=== PATIENT | female | born 1995 | race Caucasian/White ===

== ENCOUNTER → 2018-03-12 | Outpatient (CLI) | payer BC | END | disposition home or self-care (01) | LOC: LABWHC1 15:55 | PROVIDERS: ATTEND Otolaryngology | DX: Z53.9 Procedure and treatment not carried out, unspecified reason (principal) | CPT/HCPCS: 36415 ==

== ENCOUNTER → 2019-09-21 | Outpatient (CLI) | payer OTHER ==
--- NOTE | 2019-09-21 15:03 | US ---
EXAMINATION TYPE: US pelvic complete DATE OF EXAM: 09/21/2019 COMPARISON: NONE CLINICAL HISTORY: R10.2 Pelvic pain. Left pelvic pain with period x multiple months, 0 TECHNIQUE: Transabdominal sonographic images of the pelvis were acquired. Date of LMP: 09/16/2019 EXAM MEASUREMENTS: Uterus: 7.0 x 3.0 x 5.1 cm Endometrial Stripe: 0.5 cm Right Ovary: 2.9 x 1.4 x 2.2 cm Left Ovary: 3.3 x 1.7 x 2.1 cm 1. Uterus: anteverted, wnl 2. Endometrium: wnl 3. Right Ovary: wnl 4. Left Ovary: wnl 5. Bilateral Adnexa: wnl 6. Posterior cul-de-sac: Scant amount of free fluid IMPRESSION: Scant amount of free fluid, likely physiologic in nature. Otherwise unremarkable pelvic u ltrasound.
== END | disposition home or self-care (01) ==
LOC: RADUSWWP 13:53
PROVIDERS: ATTEND Obstetrics & Gynecology
DX: R10.2 Pelvic and perineal pain (principal)
CPT/HCPCS: 76856

== ENCOUNTER → 2020-10-25 | Outpatient (CLI) | payer OTHER | END | disposition home or self-care (01) | LOC: LABWHC1 10:42 | PROVIDERS: ATTEND Obstetrics & Gynecology | DX: O20.0 Threatened abortion (principal) | CPT/HCPCS: 36415; 84702 ==

== ENCOUNTER → 2020-10-27 | Outpatient (CLI) | payer OTHER | END | disposition home or self-care (01) | LOC: LABWHC1 11:17 | PROVIDERS: ATTEND Obstetrics & Gynecology | DX: O20.0 Threatened abortion (principal) | CPT/HCPCS: 36415; 84702 ==

== ENCOUNTER → 2020-12-29 | Outpatient (CLI) | payer OTHER ==
--- NOTE | 2020-12-30 07:13 | US ---
EXAMINATION TYPE: Transabdominal DATE OF EXAM: 12/29/2020 4:29 PM COMPARISON: NONE CLINICAL HISTORY: Z36 CONFIRM DATES. Miscarriage October 2020; EXAM PERFORMED: Transabdominal (TA) EXAM MEASUREMENTS: GESTATIONAL AGE / DATING Physician Established: NA Dates by LMP: LMP unknown Dates by First Scan: No previous scan. Dates by Current Scan for: (8 weeks/1 day) EDC: 08/09/2021 MATERNAL ANATOMY Uterus: 9.9 x 6.0 x 5.4cm Right Ovary: not seen Left Ovary: 5.2 x 4.3 x 4.1cm Post CDS / Adnexa: wnl Presence of free fluid: no Presence of corpus luteal cyst: in left ovary = 3.6 x 3.8 x 3.4cm Presence of subchorionic bleed: no GESTATION / SURVEY CRL: 1.8cm (8 weeks/1 day) Yolk Sac (normal less than 6mm): 3.0mm Heart Rate: 178pm Rhythm: Normal IUP: single IUP Date of LMP: unknown Beta HcG (if available): NA Single, live IUP, 8 weeks/1 day,EDC: 08/09/2021, HR 178bpm. IMPRESSION: Single viable intrauterine noted.
== END | disposition home or self-care (01) ==
LOC: RADUSWWP 16:00
PROVIDERS: ATTEND Obstetrics & Gynecology
DX: Z36.9 Encounter for antenatal screening, unspecified (principal)
CPT/HCPCS: 76801

== ENCOUNTER → 2021-03-15 | Outpatient (CLI) | payer OTHER ==
--- NOTE | 2021-03-15 15:17 | US ---
EXAMINATION TYPE: US OB anatomy transabd DATE OF EXAM: 03/15/2021 COMPARISON: NONE HISTORY: O36.62X0 @nd trimest, large for dates TECHNIQUE: EXAM MEASUREMENTS: GESTATIONAL AGE / DATING Physician Established: (19 weeks/0 days) EDC: 08-09-21 Dates by First Scan: (19 weeks/0 days) EDC: 08-09-21 Dates by Current Scan for: (19 weeks/3 days) EDC: 08-06-21 SURVEY IUP: Single PLACENTA: Anterior PREVIA: No previa MALIK: 14.1 cm CERVICAL LENGTH (transabdominal: norm > 3.0cm): 4.4 cm BIOMETRY PRESENTATION: LIE: BPD: 4.6 cm 19 weeks / 6 days HC: 16.7 cm 19 weeks / 3 days AC: 15.1 cm 20 weeks / 2 days FL: 2.9 cm 19 weeks / 1 days ESTIMATED WEIGHT IN GRAMS: 311 grams ESTIMATED WEIGHT IN LBS/OZ: 0 lbs. 11 oz. WEIGHT PERCENTAGE BASED ON ESTABLISHED DATE: 87 % HC/AC: 1.1 FL/AC: 19.7 HEART RATE: 157 bpm RHYTHM: Normal ANATOMY SEEN (within normal limits): * Lateral Vent (< 1 cm) 0.6 cm * Cisterna Magna (< 1.1 cm) 0.4 cm * Nuchal Fold (< 0.6 cm) 0.3 cm * Cerebellum (varies with age) 1.6 cm Choroid Plexus (bilateral) Midline Falx Cavus Septi Pellucidi Four Chamber Heart Outflow tracts: LVOT/RVOT Stomach Situs Nose / Lips Diaphragm Kidneys (bilateral) Bladder Cord Insert Three Vessel Cord Longitudinal Spine Transverse Spine Arms (bilateral) Legs (bilateral) Impression: Single viable intrauterine .
== END | disposition home or self-care (01) ==
LOC: RADUSWWP 13:38
PROVIDERS: ATTEND Obstetrics & Gynecology
DX: O36.62X0 Maternal care for excessive fetal growth, second trimester, not applicable or unspecified (principal)
CPT/HCPCS: 76811

== ENCOUNTER → 2021-04-19 | Outpatient (CLI) | payer OTHER ==
[2021-04-19 15:14] LABS: HCT 32.9 % (37.2-46.3); HGB 10.7 g/dL (12.0-15.0); MCHC 32.5 g/dL (32.0-37.0); MCV 95.4 fL (80.0-97.0); Mean Platelet Volume 10.3 fL (9.5-12.2); Platelet Count 261 X 10*3/uL (140-440); RBC 3.45 X 10*6/uL (4.10-5.20); RDW 13.5 % (11.5-14.5); WBC 8.65 X 10*3/uL (4.50-10.00)
== END | disposition home or self-care (01) ==
LOC: LABWHC1 07:53
PROVIDERS: ATTEND Obstetrics & Gynecology
DX: Z34.82 Encounter for supervision of other normal pregnancy, second trimester (principal); Z3A.00 Weeks of gestation of pregnancy not specified
CPT/HCPCS: 36415; 82950; 85027

== ENCOUNTER 2021-04-22 14:48 | Emergency (ER) | payer OTHER ==
[2021-04-22 14:53] VITALS: TEMP 98.4
[2021-04-22] MEDS ORDERED: SODIUM CHLORIDE 0.9% 1,000 ML IV STA (15:03)
[2021-04-22 15:10] LABS: Glucose,Whole Blood 109 mg/dL (75-99)
--- NOTE | 2021-04-22 15:43 | ED ---
Chest Pain HPI - General Chief Complaint: Chest Pain Stated Complaint: chest pain, 24wks preg Time Seen by Provider: 04/22/21 14:56 Source: patient Mode of arrival: wheelchair Limitations: no limitations - History of Present Illness Initial Comments: Jackie is a 25-year-old female previously healthy currently 24 weeks gestation with an uncomplicated . Patient works as a nurse here in the hospital. Patient reports she's had some acid reflux at the . She states that today she was working when she developed some burning and discomfort in her epigastrium and retrosternal area. When this developed patient felt like she couldn't breathe she then felt very short of breath. Her coworkers noted that she became sweaty and advised her to come to the ER for evaluation. Symptoms were persisting upon arrival and had been persistent for only 15 minutes. - Related Data Allergies Allergy/AdvReac Type Severity Reaction Status Date / Time No Known Allergies Allergy Verified 04/22/21 14:51 Review of Systems ROS Statement: Those systems with pertinent positive or pertinent negative responses have been documented in the HPI. ROS Other: All systems not noted in ROS Statement are negative. EKG Findings - EKG Comments: EKG Findings:: EKG was obtained 1458 rate is 9200 with sinus there is a normal axis there are normal intervals, MA 92 QRS 90 QTc is 460 there are no acute ST elevations or depressions there is no evidence of acute ischemia or infarction. Past Medical History Past Medical History: No Reported History History of Any Multi-Drug Resistant Organisms: None Reported Past Surgical History: No Surgical Hx Reported Past Psychological History: No Psychological Hx Reported Smoking Status: Never smoker Past Alcohol Use History: None Reported Past Drug Use History: None Reported General Exam - General Exam Comments Initial Comments: Physical Exam GENERAL: Patient is well-developed and well-nourished. Patient is nontoxic and well- hydrated and is in no distress. HENT: Normocephalic, Atraumatic. EYES: PERRL, EOMI PULMONARY: Unlabored respirations. No audible rales rhonchi or wheezing was noted. CARDIOVASCULAR: There is a regular rate and rhythm without any murmurs gallops or rubs. ABDOMEN: Gravid Uterus SKIN: Skin is clear with no lesions or rashes and otherwise unremarkable. : Deferred NEUROLOGIC: Patient is alert and oriented x3. Moving all extremities spontaneously MUSCULOSKELETAL: Normal extremities with adequate strength and full range of motion. No lower extremity swelling or edema. No calf tenderness. PSYCHIATRIC: Normal psychiatric evaluation. Limitations: no limitations Course Vital Signs 04/22/21 04/22/21 14:49 16:30 Temperature 98.4 F Pulse Rate 101 H 94 Respiratory 24 18 Rate Blood Pressure 106/60 118/45 O2 Sat by Pulse 100 98 Oximetry Chest Pain MDM - MDM The patient was seen and evaluated history was obtained from patient Despite having oxygen saturations of 9200% patient reported she could not breathe Patient was placed on supplemental oxygen Workup was initiated Labs with mild leukocytosis and anemia consistent with normal , d-dimer is not elevated troponin is not elevated DVT studies are negative and chest x-ray is normal Patient reports resolution of her symptoms she is feeling much better she was comfortable with the plan for discharge home She care was discussed with Dr. Frey who recommends patient go to labor and delivery for an NST, patient discharged from ER to go to L&D Disposition Clinical Impression: Atypical chest pain Disposition: HOME SELF-CARE Condition: Stable Is patient prescribed a controlled substance at d/c from ED?: No Referrals: Clayton Fernando MD [Primary Care Provider] - 1-2 days
[2021-04-22 15:50] LABS: Basophils % (A) 0 %; Eosinophils # (A) 0.1 k/uL (0-0.7); Eosinophils % (A) 1 %; HGB 11.3 gm/dL (11.4-16.0); Lymphocytes # (A) 1.6 k/uL (1.0-4.8); Lymphocytes % (A) 15 %; MCH 33.2 pg (25.0-35.0); MCHC 36.6 g/dL (31.0-37.0); MCV 90.6 fL (80.0-100.0); Mean Platelet Volume 7.4; Monocytes # (A) 0.5 k/uL (0-1.0); Monocytes % (A) 5 %; Neutrophils # (A) 8.2 k/uL (1.3-7.7); Neutrophils % (A) 77 %; Platelet Count 251 k/uL (150-450); RBC 3.42 m/uL (3.80-5.40); WBC 10.7 k/uL (3.8-10.6)
[2021-04-22 15:59] LABS: ALT 10 U/L (4-34); AST 23 U/L (14-36); African American GFR (CKD) >90 (>60 ml/min/1.73 sqM); Albumin 3.4 g/dL (3.5-5.0); Alkaline Phosphatase 66 U/L (38-126); Anion Gap 6 mmol/L; Blood Urea Nitrogen 8 mg/dL (7-17); Calcium 8.9 mg/dL (8.4-10.2); Carbon Dioxide 24 mmol/L (22-30); Chloride 105 mmol/L (98-107); Glucose 123 mg/dL (74-99); Lipase 84 U/L (23-300); Magnesium 1.8 mg/dL (1.6-2.3); Non-African American GFR(CKD) >90 (>60 ml/min/1.73 sqM); Potassium 3.4 mmol/L (3.5-5.1); Sodium 135 mmol/L (137-145); Total Bilirubin 0.2 mg/dL (0.2-1.3); Total Protein 5.8 g/dL (6.3-8.2)
[2021-04-22 16:13] LABS: D-Dimer 0.56 mg/L FEU (<0.60); INR 0.9 (<1.2); Prothrombin Time 9.6 sec (9.0-12.0)
[2021-04-22 16:16] LABS: Partial Thromboplastin Time 19.9 sec (22.0-30.0)
[2021-04-22 16:33] VITALS: RESP 18
--- NOTE | 2021-04-22 16:34 | US ---
EXAMINATION TYPE: US venous doppler duplex LE BI DATE OF EXAM: 04/22/2021 4:07 PM COMPARISON: NONE CLINICAL HISTORY: suspect PE. SIDE PERFORMED: Bilateral TECHNIQUE: The lower extremity deep venous system is examined utilizing real time linear array sonog kim with graded compression, doppler sonography and color-flow sonography. VESSELS IMAGED: Common Femoral Vein Deep Femoral Vein Greater Saphenous Vein * Femoral Vein Popliteal Vein Small Saphenous Vein * Proximal Calf Veins (* superficial vessels) Right Leg: Negative for DVT Left Leg: Negative for DVT IMPRESSION: No evidence of deep vein thrombosis in both legs.
--- NOTE | 2021-04-22 17:10 | XR ---
EXAMINATION TYPE: XR chest 2V DATE OF EXAM: 04/22/2021 COMPARISON: NONE HISTORY: Short of breath TECHNIQUE: 2 views FINDINGS: Heart and mediastinum are normal. Lungs are clear. Diaphragm is normal. Bony thorax is inta ct. Pulmonary vascularity is normal. IMPRESSION: Normal chest.
[2021-04-22 18:11] VITALS: BP 135/85; PULSE 86
== END 2021-04-22 18:15 | disposition home or self-care (01) ==
LOC: EC 14:48
DX: O26.892 Other specified pregnancy related conditions, second trimester (principal); R07.89 Other chest pain; Z3A.24 24 weeks gestation of pregnancy
CPT/HCPCS: 36415; 71046; 80053; 83690; 83735; 83880; 84484; 85025; 85379; 85610; 85730; 93005; 93970; 99285

== ENCOUNTER → 2021-04-28 | Outpatient (CLI) | payer OTHER ==
[2021-04-28 12:07] LABS: Glucose 3 Hour, Gest 57 mg/dL
== END | disposition home or self-care (01) ==
LOC: LABWHC1 07:09
PROVIDERS: ATTEND Obstetrics & Gynecology
DX: O24.419 Gestational diabetes mellitus in pregnancy, unspecified control (principal); Z3A.00 Weeks of gestation of pregnancy not specified
CPT/HCPCS: 36415; 82951; 82952

== ENCOUNTER 2021-04-30 00:40 | Outpatient (CLI) | payer OTHER ==
[2021-04-30] MEDS ORDERED: MAG HYDROX/AL HYDROX/SIMETH 30 ML CUP PO PRN (00:54)
[2021-04-30 02:47] VITALS: BP 120/58; PULSE 83; RESP 16; TEMP 96.4
--- NOTE | 2021-06-02 21:30 | P.MSEPDOC ---
Presenting Problems - Arrival Data Date of Arrival on Unit: 04/30/21 Time of Arrival on Unit: 00:40 Mode of Transport: Ambulatory - Complaint OB-Reason for Admission/Chief Complaint: Pain Comment: patient arrives to triage with complaints of right upper quadrant pain that. radiates towards her back. The pain is sharp. She states that she was in the ER on 04/26 for the same pain. Medical History - Information : 2 Para: 0 Term: 0 : 0 Abortions: Spontaneous or Elective: 1 Number of Living Children: 0 - Gestational Age Gestational Age by ADITYA (wks/days): 25 Weeks and 4 Days Review of Systems - Review of Systems Constitutional: No problems Breast: No problems ENT: No problems Cardiovascular: No problems Respiratory: No problems Gastrointestinal: No problems Genitourinary: No problems Musculoskeletal: No problems Neurological: No problems Skin: No problems Vital Signs - Temperature Temperature: 96.4 F Temperature Source: Temporal Artery Scan - Pulse Right Brachial Pulse Rate: 83 Pulse Assessment Method: Automatic Cuff - Respirations Respiratory Rate: 16 Oxygen Delivery Method: Room Air - Blood Pressure Right Arm Blood Pressure: 120/58 Blood Pressure Mean: 78 Blood Pressure Source: Automatic Cuff Medical Screen Scoring - Cervical Exam Membranes: Intact - Assessment - Baby A Baseline FHR: 140 Heart Rate - NICHD Category: Category I (Normal) Physician Notification - Physician Notified Physician Notified Date: 04/30/21 Physician Notified Time: 00:51 Physician: Loretta Mcpherson New Order Received: Yes - Notification Comment Comment: RN spoke with Dr. Mcpherson. heart tones between 130-140. No contractions. noted on monitor. RN reported normal vital signs, right upper quadrant pain that radiates to her back for one hour. Patient came to ER on 04/26/21 for same symptoms. ER ruled out a PE at that time. Patient believes it to be her gall bladder because symptoms start after eating food. Dr. Mcpherson would like patient to have a dose of Maalox and be discharged. Patient isto be seen by Dr. Mcpherson this week and Dr. Mcpherson states she will write her a. prescription for a gall bladder US as an outpatient so patient does not have to sit in the ER. Patient updated on plan of care. Maternal Triage Index - Non-Urgent/Priority 4 Non-Urgent Priority 4: Yes Criteria Met for Priority 4: Patient is having pain in her upper right quadrant radiating to her back. Disposition - Disposition OB Disposition: Discharge to home Discharge Date: 04/30/21 Discharge Time: 01:30 I agree with the RN Medical Screening Exam: Yes Case reviewed; plan agreed upon as documented in EMR&OBIX.: Yes Diagnosis: OTHER CHOLELITHIASIS WITHOUT OBSTRUCTION
== END 2021-04-30 01:30 | disposition home or self-care (01) ==
LOC: FBPOP 00:40
PROVIDERS: ATTEND Obstetrics & Gynecology
DX: O26.612 Liver and biliary tract disorders in pregnancy, second trimester (principal); K80.80 Other cholelithiasis without obstruction; Z3A.25 25 weeks gestation of pregnancy
CPT/HCPCS: 99213

== ENCOUNTER → 2021-05-15 | Outpatient (CLI) | payer OTHER ==
--- NOTE | 2021-05-15 16:10 | US ---
EXAMINATION TYPE: US gallbladder DATE OF EXAM: 05/15/2021 COMPARISON: 03/15/2021 CLINICAL HISTORY: R10.11 Rt upper quadrant pain. patient with right upper quadrant pain. EXAM MEASUREMENTS: Liver Length: 13.3 cm Gallbladder Wall: 0.2 cm CBD: 0.2 cm Right Kidney: 11.3 x 5.3 x 5.7 cm patient with RUQ pain Pancreas: portions visualized wnl, slightly obscured by bowel gas Liver: wnl Gallbladder: cholelithiasis with sludge Evidence for sonographic Bautista's sign: no CBD: wnl Right Kidney: Inferior pole obscured by overlying bowel gas IMPRESSION: 1. Cholelithiasis and sludge. No pericholecystic fluid or gallbladder wall thickening. Bautista's sign is negative. 2. No hydronephrosis or shadowing renal calculi. 3. The inferior pole of the right kidney is not well visualized due to overlying bowel gas.
== END | disposition home or self-care (01) ==
LOC: RADUSWWP 07:33
PROVIDERS: ATTEND Obstetrics & Gynecology
DX: K80.20 Calculus of gallbladder without cholecystitis without obstruction (principal)
CPT/HCPCS: 76705

== ENCOUNTER → 2021-07-05 | Outpatient (CLI) | payer OTHER ==
--- NOTE | 2021-07-05 09:50 | US ---
EXAMINATION TYPE: US OB anatomy transabd DATE OF EXAM: 07/05/2021 COMPARISON: US HISTORY: O36.63X0 3rd Trimester large for dates All anatomy was seen on prior US here; TECHNIQUE: Transabdominal (TA) EXAM MEASUREMENTS: GESTATIONAL AGE / DATING Physician Established: (35 weeks/0 days) EDC: 08/09/2021 Dates by LMP: (35 weeks/0 days) EDC: 08/09/2021 Dates by First Scan: (35 weeks/3 days) EDC: 08/06/2021 Dates by Current Scan for: (34 weeks/5 days) EDC: 08/11/2021 SURVEY IUP: Single PLACENTA: Anterior PREVIA: No previa MALIK: 11.8 cm Normal CERVICAL LENGTH (transabdominal: norm > 3.0cm): 3.7 cm BIOMETRY PRESENTATION: cephalic LIE: Longitudinal BPD: 8.6 cm 34 weeks / 4 days HC: 30.9 cm 34 weeks / 3 days AC: 32.3 cm 36 weeks / 2 days FL: 6.8 cm 35 weeks / 0 days ESTIMATED WEIGHT IN GRAMS: 2705.0 grams ESTIMATED WEIGHT IN LBS/OZ: 5 lbs. 15 oz. WEIGHT PERCENTAGE BASED ON ESTABLISHED DATE: 63.1 % HC/AC: 0.96 Normal FL/AC: 21.08 Normal HEART RATE: 127 bpm RHYTHM: Normal ANATOMY SEEN (within normal limits): Midline Falx Cavus Septi Pellucidi Stomach Situs Nose / Lips Diaphragm Kidneys (bilateral) Bladder Three Vessel Cord Longitudinal Spine Transverse Spine ANATOMY SEEN (does not appear within normal limits): ANATOMY NOT SEEN: Due to position, limited visualization with skull shadowing, rib shadowing, crowding in 3rd trimester. * Lateral Vent (< 1 cm) cm * Cisterna Magna (< 1.1 cm) cm * Nuchal Fold (< 0.6 cm) cm * Cerebellum (varies with age) cm Choroid Plexus (bilateral) Four Chamber Heart Outflow tracts: LVOT/RVOT Cord Insert Arms (bilateral) Legs (bilateral) IMPRESSION: Single, live IUP, 34 weeks/5 days, EDC: 08/11/2021, [id number].
== END | disposition home or self-care (01) ==
LOC: RADUSWWP 07:56
PROVIDERS: ATTEND Obstetrics & Gynecology
DX: O36.63X0 Maternal care for excessive fetal growth, third trimester, not applicable or unspecified (principal); Z3A.35 35 weeks gestation of pregnancy
CPT/HCPCS: 76811

== ENCOUNTER 2021-07-30 14:11 | Outpatient (CLI) | payer OTHER ==
[2021-07-30 16:06] VITALS: BP 130/75; PULSE 120; RESP 18; TEMP 97.6
--- NOTE | 2021-07-31 09:26 | P.MSEPDOC ---
Presenting Problems - Arrival Data Date of Arrival on Unit: 07/30/21 Time of Arrival on Unit: 14:11 Mode of Transport: Ambulatory - Complaint OB-Reason for Admission/Chief Complaint: Rule Out SROM, Decreased Movement Medical History - Information : 2 Para: 0 Term: 0 : 0 Abortions: Spontaneous or Elective: 1 Number of Living Children: 0 - Gestational Age Gestational Age by ADITYA (wks/days): 38 Weeks and 4 Days Review of Systems - Review of Systems Constitutional: No problems Breast: No problems ENT: No problems Cardiovascular: No problems Respiratory: No problems Gastrointestinal: No problems Genitourinary: No problems Musculoskeletal: No problems Neurological: No problems Skin: No problems Vital Signs - Temperature Temperature: 97.6 F Temperature Source: Temporal Artery Scan - Pulse Right Pulse Rate: 120 Pulse Assessment Method: Automatic Cuff - Respirations Respiratory Rate: 18 Oxygen Delivery Method: Room Air O2 Sat by Pulse Oximetry: 97 - Blood Pressure Right Arm Blood Pressure: 130/75 Blood Pressure Mean: 93 Blood Pressure Source: Automatic Cuff Medical Screen Scoring - Cervical Exam Dilation (cm): 1 Effacement (%): 50 Station: -2 Membranes: Intact - Uterine Contractions Intensity: Mild Resting: Soft to palpation - Assessment - Baby A Baseline FHR: 145 Heart Rate - NICHD Category: Category I (Normal) NST: Reactive Physician Notification - Physician Notified Physician Notified Date: 07/30/21 Physician Notified Time: 15:15 Physician: Vishal Frey Order Received: Yes (discharge home to call office about F/U) Maternal Triage Index - Maternal Triage Index Presenting for scheduled procedure w/no complaint: No - Stat/Priority 1 Stat Priority 1: No - Urgent/Priority 2 Urgent Priority 2: No - Prompt/Priority 3 Prompt Priority 3: No - Non-Urgent/Priority 4 Non-Urgent Priority 4: Yes Criteria Met for Priority 4: Amnisure negative, reactive NST Disposition - Disposition OB Disposition: Discharge to home Discharge Date: 07/30/21 Discharge Time: 15:25 I agree with the RN Medical Screening Exam: Yes Case reviewed; plan agreed upon as documented in EMR&OBIX.: Yes Diagnosis: FALSE LABOR AT OR AFTER 37 COMPLETED WEEKS OF GESTATION
== END 2021-07-30 15:20 | disposition home or self-care (01) ==
LOC: FBPOP 14:11
PROVIDERS: ATTEND Obstetrics & Gynecology
DX: O47.1 False labor at or after 37 completed weeks of gestation (principal); Z3A.38 38 weeks gestation of pregnancy
CPT/HCPCS: 59025; 84112; 87635; 99213

== ENCOUNTER 2021-08-04 16:16 | Outpatient (CLI) | payer OTHER ==
[2021-08-04 17:29] VITALS: BP 117/72; PULSE 108; RESP 16; TEMP 98.4
--- NOTE | 2021-08-06 17:31 | P.MSEPDOC ---
Presenting Problems - Arrival Data Date of Arrival on Unit: 08/04/21 Time of Arrival on Unit: 16:10 Mode of Transport: Ambulatory - Complaint OB-Reason for Admission/Chief Complaint: Other Comment: positive covid. 39 weeks preg. seen by ob- dr goodson in er observation room as office visit. Medical History - Information : 2 Para: 0 Term: 0 : 0 Abortions: Spontaneous or Elective: 1 Number of Living Children: 0 - Gestational Age Gestational Age by ADITYA (wks/days): 39 Weeks and 2 Days Review of Systems - Review of Systems Constitutional: No problems Breast: No problems ENT: No problems Cardiovascular: No problems Respiratory: No problems Gastrointestinal: No problems Genitourinary: No problems Musculoskeletal: No problems Neurological: No problems Skin: No problems Vital Signs - Temperature Temperature: 98.4 F Temperature Source: Oral - Pulse Right Radial Pulse Rate: 108 Pulse Assessment Method: Automatic Cuff - Respirations Respiratory Rate: 16 Oxygen Delivery Method: Room Air O2 Sat by Pulse Oximetry: 98 - Blood Pressure Right Arm Blood Pressure: 117/72 Blood Pressure Mean: 87 Blood Pressure Source: Automatic Cuff Medical Screen Scoring - Cervical Exam Dilation (cm): 0.5 Membranes: Intact - Uterine Contractions Intensity: Mild Resting: Soft to palpation - Assessment - Baby A Baseline FHR: 140 Maternal Triage Index - Maternal Triage Index Presenting for scheduled procedure w/no complaint: Yes - Scheduled/Requesting Priority 5 Scheduled/Requesting Priority 5: Yes Criteria Met for Priority 5: seen in er observation with dr goodson . Disposition - Disposition OB Disposition: Discharge to home Discharge Date: 08/04/21 Discharge Time: 16:50 I agree with the RN Medical Screening Exam: Yes Case reviewed; plan agreed upon as documented in EMR&OBIX.: Yes Comments: fundal height appropriate. FT/60/-3. 140 heart tones. will re-evaluate next week for possible induction if she does not deliver before 41 weeks. Diagnosis: COVID-19
== END 2021-08-04 16:50 | disposition home or self-care (01) ==
LOC: FBPOP 16:16
PROVIDERS: ATTEND Obstetrics & Gynecology
DX: Z53.9 Procedure and treatment not carried out, unspecified reason (principal)

== ENCOUNTER 2021-08-14 15:45 | Inpatient (IN) | payer OTHER ==
[2021-08-14] MEDS ORDERED: DINOPROSTONE 10 MG INSERT.ER VAGINAL ONE (16:04)
[2021-08-14] MEDS ORDERED: ZOLPIDEM 5 MG TAB PO PRN (17:54)
[2021-08-14] MEDS: LACTATED RINGERS 1,000 ML IV SCH (23:00)
[2021-08-14] MEDS ORDERED: METHYLERGONOVINE 0.2 MG/ML 1 ML AMP IM PRN (23:08)
[2021-08-14] MEDS ORDERED: LIDOCAINE 0.5% (PF) 5 MG/ML (50 ML SDV) SQ PRN (23:08)
[2021-08-14] MEDS ORDERED: CARBOPROST TROMETHAMINE 250 MCG/ML 1 ML AMP IM PRN (23:08)
[2021-08-14] MEDS ORDERED: TERBUTALINE 1 MG/ML VIAL SQ PRN (23:08)
[2021-08-14] MEDS ORDERED: OXYTOCIN 10 UNIT/ML 1 ML VIAL IM PRN (23:08)
[2021-08-14] MEDS: BUTORPHANOL 1 MG/ML 1 ML VIAL IV PRN (23:15)
[2021-08-14] MEDS ORDERED: OXYTOCIN 30 UNITS/500 ML NS 30 UNIT in SALINE 1 500ML.BAG IV SCH (23:15)
[2021-08-15] LABS: Basophils % (A) 0 %; Eosinophils # (A) 0.1 k/uL (0-0.7); Eosinophils % (A) 1 %; HGB 14.6 gm/dL (11.4-16.0); Lymphocytes # (A) 1.4 k/uL (1.0-4.8); Lymphocytes % (A) 19 %; MCH 31.8 pg (25.0-35.0); MCHC 34.9 g/dL (31.0-37.0); MCV 91.2 fL (80.0-100.0); Mean Platelet Volume 8.4; Monocytes # (A) 0.4 k/uL (0-1.0); Monocytes % (A) 6 %; Neutrophils # (A) 5.4 k/uL (1.3-7.7); Neutrophils % (A) 72 %; Platelet Count 206 k/uL (150-450); RDW 12.2 % (11.5-15.5); WBC 7.5 k/uL (3.8-10.6)
[2021-08-15] MEDS: BUTORPHANOL 1 MG/ML 1 ML VIAL IV PRN ×2 (01:19→03:19)
[2021-08-15] MEDS: LACTATED RINGERS 1,000 ML IV SCH ×2 (03:09→04:56)
[2021-08-15] MEDS ORDERED: ROPIVACAINE 5MG/ML 20ML VIAL ONE (04:14)
[2021-08-15] MEDS ORDERED: SODIUM CHLORIDE 0.9% 100 ML BAG ONE (04:14)
[2021-08-15] MEDS ORDERED: fentaNYL (PF) 50 MCG/ML 5 ML AMP ONE (04:14)
--- NOTE | 2021-08-15 07:08 | P.HPOB ---
History of Present Illness H&P Date: 08/14/21 Chief Complaint: induction of labor 26 year old presents at 40 weeks 5 days for induction of labor. Her cervix is 1/60/-2 and she is not david. heart tones 140 with moderate variability and reactive. Review of Systems All systems: negative Constitutional: Denies chills, Denies fever Eyes: denies blurred vision, denies pain Ears, nose, mouth and throat: Denies headache, Denies sore throat Cardiovascular: Denies chest pain, Denies shortness of breath Respiratory: Denies cough Gastrointestinal: Denies abdominal pain, Denies diarrhea, Denies nausea, Denies vomiting Genitourinary: Denies dysuria, Denies hematuria Musculoskeletal: Denies myalgias Integumentary: Denies pruritus, Denies rash Neurological: Denies numbness, Denies weakness Psychiatric: Denies anxiety, Denies depression Endocrine: Denies fatigue, Denies weight change Past Medical History Past Medical History: No Reported History Additional Past Medical History / Comment(s): gall bladder problems during pregancy History of Any Multi-Drug Resistant Organisms: None Reported Past Surgical History: No Surgical Hx Reported Additional Past Surgical History / Comment(s): wisdom teeth removal Past Anesthesia/Blood Transfusion Reactions: No Reported Reaction Past Psychological History: No Psychological Hx Reported Smoking Status: Never smoker Past Alcohol Use History: None Reported Past Drug Use History: None Reported - Past Family History Father Family Medical History: Coronary Artery Disease (CAD) Additional Family Medical History / Comment(s): ID Medications and Allergies Home Medications Medication Instructions Recorded Confirmed Type Pnv No.95/Ferrous Fum/Folic AC 1 tab PO DAILY 04/30/21 08/14/21 History [ Multivitamin Tablet] Allergies Allergy/AdvReac Type Severity Reaction Status Date / Time No Known Allergies Allergy Verified 08/14/21 16:22 Exam Osteopathic Statement: *. No significant issues noted on an osteopathic structural exam other than those noted in the History and Physical/Consult. Vital Signs Temp Pulse Resp BP Pulse Ox 08/14/21 16:24 97.7 F 89 17 132/77 98 Intake and Output 08/14/21 08/15/21 08/15/21 22:59 06:59 14:59 Intake Total 1999 Balance 1999 Intake: IV 1999 Other: # Voids 3 2 # Bowel Movements 3 Weight 86.183 kg Heart: Regular rate and rhythm Lungs: Clear to auscultation bilaterally Abdomen: Soft, nontender Extremities: Negative Homans sign Results Result Diagrams: 08/14/21 23:00 Assessment and Plan (1) Encounter for induction of labor Current Visit: Yes Status: Acute Code(s): Z34.90 - ENCNTR FOR SUPRVSN OF NORMAL , UNSP, UNSP TRIMESTER SNOMED Code(s): 955023013 Plan: 1. induction of labor with cervidil tonight and then amniotomy and pitocin in the morning. 2. anticipate normal vaginal delivery
[2021-08-15] MEDS ORDERED: diphenhydrAMINE 50 MG CAP PO PRN (10:21)
[2021-08-15] MEDS ORDERED: LANOLIN CREAM 5 GM TUBE TOPICAL PRN (10:21)
[2021-08-15] MEDS ORDERED: BENZOCAINE/MENTHOL SPRAY 1 GM/SPRAY AEROSOL TOPICAL PRN (10:21)
[2021-08-15] MEDS ORDERED: ZOLPIDEM 5 MG TAB PO PRN (10:21)
[2021-08-15] MEDS ORDERED: SIMETHICONE 80 MG CHEWABLE PO PRN (10:21)
[2021-08-15] MEDS ORDERED: diphenhydrAMINE 25 MG CAP PO PRN (10:21)
[2021-08-15] MEDS ORDERED: diphenhydrAMINE 50 MG/ML 1 ML VIAL IVP PRN ×2 (10:21)
[2021-08-15] MEDS ORDERED: ACETAMINOPHEN TAB 325 MG TAB PO PRN (10:26)
[2021-08-15] MEDS: IBUPROFEN 600 MG TAB PO PRN ×3 (10:54→23:23)
--- NOTE | 2021-08-15 17:18 | P.PROBDLV ---
Vaginal Delivery Note - . Vaginal Delivery Note: 26 year old presents at 40 weeks 5 days for induction of labor. Her cervix is 1/60/-2 and she is not david. heart tones 140 with moderate variability and reactive. Cervidil was placed. She did start david since and thereafter. When she was 2 cm dilated around 4:00 in the morning she was given an epidural for pain management. Cervidil had fallen out at that time. Pitocin was started. Amniotomy performed at 7:03 AM and clear fluid noted. She was 5 cm dilated, 90% effaced, and -1 station. heart tones remained 135- 140 with moderate variability and reactive. Her cervix was completely dilated at 8:16 AM. She pushed, delivered a viable female over intact perineum under epidural anesthesia at 9:19 AM. Head delivered OA, anterior shoulder which was the left shoulder was delivered gentle downward guidance followed by posterior shoulder and rest of body. Nose and mouth bulb suctioned, cord clamped and cut, placed on mother's abdomen. Apgars 9, 9, weight 7 lbs. 15 oz. Placenta attempted to be delivered but the cord evulsed. The placenta was then manually removed and 9:23 AM and patient tolerated well. Vagina, cervix, and perineum were inspected. First-degree midline laceration was repaired with 3-0 Vicryl. Estimated blood loss 150 mL. Mother and baby in stable condition.
[2021-08-15] MEDS: SENNOSIDES-DOCUSATE SODIUM 1 EACH TAB PO SCH (21:37)
[2021-08-16] MEDS: IBUPROFEN 600 MG TAB PO PRN (07:40)
[2021-08-16 07:50] LABS: Basophils % (A) 0 %; Eosinophils # (A) 0.1 k/uL (0-0.7); Eosinophils % (A) 1 %; HCT 33.5 % (34.0-46.0); HGB 11.8 gm/dL (11.4-16.0); Lymphocytes # (A) 1.7 k/uL (1.0-4.8); Lymphocytes % (A) 16 %; MCHC 35.3 g/dL (31.0-37.0); MCV 90.7 fL (80.0-100.0); Mean Platelet Volume 8.1; Monocytes # (A) 0.6 k/uL (0-1.0); Monocytes % (A) 6 %; Neutrophils # (A) 7.7 k/uL (1.3-7.7); Neutrophils % (A) 73 %; Platelet Count 209 k/uL (150-450); RBC 3.69 m/uL (3.80-5.40); WBC 10.5 k/uL (3.8-10.6)
[2021-08-16 08:23] VITALS: BP 119/80; PULSE 88; RESP 16; TEMP 98.3
[2021-08-16] MEDS: SENNOSIDES-DOCUSATE SODIUM 1 EACH TAB PO SCH (08:45)
== END 2021-08-16 10:30 | disposition home or self-care (01) | DRG 807 ==
LOC: 4FBP 15:45
PROVIDERS: ADMIT Obstetrics & Gynecology; ATTEND Obstetrics & Gynecology
PROC: 3E0P7VZ Introduction of Hormone into Female Reproductive, Via Natural or Artificial Opening (ICD-10-PCS; principal; 2021-08-14)
PROC: 0HQ9XZZ Repair Perineum Skin, External Approach (ICD-10-PCS; 2021-08-15)
PROC: 00HU33Z Insertion of Infusion Device into Spinal Canal, Percutaneous Approach (ICD-10-PCS; 2021-08-15)
PROC: 3E033VJ Introduction of Other Hormone into Peripheral Vein, Percutaneous Approach (ICD-10-PCS; 2021-08-15)
PROC: 3E0R3NZ Introduction of Analgesics, Hypnotics, Sedatives into Spinal Canal, Percutaneous Approach (ICD-10-PCS; 2021-08-15)
PROC: 10E0XZZ Delivery of Products of Conception, External Approach (ICD-10-PCS; 2021-08-15)
PROC: 10907ZC Drainage of Amniotic Fluid, Therapeutic from Products of Conception, Via Natural or Artificial Opening (ICD-10-PCS; 2021-08-15)
DX: O70.0 First degree perineal laceration during delivery (principal); Z37.0 Single live birth; O69.89X0 Labor and delivery complicated by other cord complications, not applicable or unspecified; Z3A.40 40 weeks gestation of pregnancy; Z82.49 Family history of ischemic heart disease and other diseases of the circulatory system
CPT/HCPCS: 85025; 86850; 86900; 86901

== ENCOUNTER 2021-09-05 15:22 | Inpatient (IN) | payer OTHER ==
[2021-09-05] MEDS ORDERED: ONDANSETRON 4 MG/2 ML VIAL IVP STA (15:44)
[2021-09-05] MEDS ORDERED: HYDROmorphone 0.5 MG/0.5 ML SYRINGE IVP STA (15:44)
[2021-09-05] MEDS ORDERED: SODIUM CHLORIDE 0.9% 1,000 ML IV STA (15:44)
[2021-09-05] MEDS ORDERED: SODIUM CHLORIDE 0.9% 500 ML 500 ML IV STA (15:44)
--- NOTE | 2021-09-05 15:48 | ED ---
Abdominal Pain HPI - General Chief Complaint: Abdominal Pain Stated Complaint: Gall bladder Source: patient, family, RN notes reviewed Mode of arrival: ambulatory Limitations: no limitations - History of Present Illness Initial Comments: Patient is a 26-year-old female presented to the ED for abdominal pain. Patient states that she has had recurrent attacks since becoming , with continuation after delivery. Patient is scheduled to go bladder removed by Dr. Khan on September 15. Patient states that she has been feeling ill with recurrent attacks, increased pain starting yesterday. Patient reports low-grade fever starting today with episodes of nausea and vomiting daily. Patient voices biggest concern "becoming septic and just wanted to check everything out to avoid emergent surgery". - Related Data Home Medications Medication Instructions Recorded Confirmed Pnv No.95/Ferrous Fum/Folic AC 1 tab PO DAILY 04/30/21 09/05/21 [ Multivitamin Tablet] Acetaminophen [Tylenol] 500 mg PO Q4-6H PRN 09/05/21 09/05/21 Calcium Carbonate [Tums] 500 mg PO QID PRN 09/05/21 09/05/21 Mag Hydrox/Aluminum Hyd/Simeth 30 ml PO Q4H PRN 09/05/21 09/05/21 [Mylanta Maximum Strength Liq] Previous Rx's Medication Instructions Recorded Ibuprofen [Motrin] 600 mg PO Q6HR PRN #30 tab 08/16/21 Allergies Allergy/AdvReac Type Severity Reaction Status Date / Time No Known Allergies Allergy Verified 09/05/21 16:21 Review of Systems ROS Statement: Those systems with pertinent positive or pertinent negative responses have been documented in the HPI. ROS Other: All systems not noted in ROS Statement are negative. Past Medical History Past Medical History: No Reported History Additional Past Medical History / Comment(s): gall bladder problems during pregancy History of Any Multi-Drug Resistant Organisms: None Reported Past Surgical History: No Surgical Hx Reported Additional Past Surgical History / Comment(s): wisdom teeth removal Past Anesthesia/Blood Transfusion Reactions: No Reported Reaction Past Psychological History: No Psychological Hx Reported Smoking Status: Never smoker Past Alcohol Use History: None Reported Past Drug Use History: None Reported - Past Family History Father Family Medical History: Coronary Artery Disease (CAD) Additional Family Medical History / Comment(s): [place] General Exam Limitations: no limitations General appearance: alert, in no apparent distress Eye exam: Present: scleral icterus Respiratory exam: Present: normal lung sounds bilaterally. Absent: respiratory distress, wheezes, rales, rhonchi, stridor Cardiovascular Exam: Present: regular rate, normal rhythm, normal heart sounds. Absent: systolic murmur, diastolic murmur, rubs, gallop, clicks GI/Abdominal exam: Present: soft, tenderness (Right upper quadrant), normal bowel sounds Back exam: Present: normal inspection Neurological exam: Present: alert, oriented X3 Skin exam: Present: warm, dry, intact, other (jaundice ) Course Vital Signs 09/05/21 09/05/21 15:29 17:34 Temperature 97.8 F Pulse Rate 88 78 Respiratory 18 18 Rate Blood Pressure 140/85 134/78 O2 Sat by Pulse 95 97 Oximetry Medical Decision Making - Medical Decision Making I did discuss the case with Dr. Perez, who contacted me in regards to her known patient. Patient will be admitted for monitoring of LFTs, pain control, starting antibiotics will be allowed ice chips, popsicles - Lab Data Result diagrams: 09/05/21 16:10 09/05/21 16:10 Lab Results 09/05/21 09/05/21 09/05/21 Range/Units 16:10 16:10 16:10 WBC 6.8 (3.8-10.6) k/uL RBC 4.70 (3.80-5.40) m/uL Hgb 14.6 (11.4-16.0) gm/dL Hct 43.7 (34.0-46.0) % MCV 93.0 (80.0-100.0) fL MCH 31.1 (25.0-35.0) pg MCHC 33.5 (31.0-37.0) g/dL RDW 11.7 (11.5-15.5) % Plt Count 297 (150-450) k/uL MPV 7.3 Neutrophils % 72 % Lymphocytes % 19 % Monocytes % 5 % Eosinophils % 2 % Basophils % 0 % Neutrophils # 4.9 (1.3-7.7) k/uL Lymphocytes # 1.3 (1.0-4.8) k/uL Monocytes # 0.3 (0-1.0) k/uL Eosinophils # 0.1 (0-0.7) k/uL Basophils # 0.0 (0-0.2) k/uL Sodium 138 (137-145) mmol/L Potassium 4.0 (3.5-5.1) mmol/L Chloride 105 (98-107) mmol/L Carbon Dioxide 25 (22-30) mmol/L Anion Gap 8 mmol/L BUN 13 (7-17) mg/dL Creatinine 0.58 (0.52-1.04) mg/dL Est GFR (CKD-EPI)AfAm >90 (>60 ml/min/1.73 sqM) Est GFR (CKD-EPI)NonAf >90 (>60 ml/min/1.73 sqM) Glucose 91 (74-99) mg/dL Plasma Lactic Acid Edenilson (0.7-2.0) mmol/L Calcium 9.5 (8.4-10.2) mg/dL Total Bilirubin 3.8 H (0.2-1.3) mg/dL AST 834 H (14-36) U/L ALT 804 H (4-34) U/L Alkaline Phosphatase 252 H (38-126) U/L Total Protein 7.1 (6.3-8.2) g/dL Albumin 4.1 (3.5-5.0) g/dL Amylase 52 (30-110) U/L Lipase 146 (23-300) U/L Urine Color Brown Urine Appearance Cloudy H (Clear) Urine pH 6.0 (5.0-8.0) Ur Specific [place] 1.036 H (1.001-1.035) Urine Protein 1+ H (Negative) Urine Glucose (UA) Negative (Negative) Urine Ketones Negative (Negative) Urine Blood Trace H (Negative) Urine Nitrite Negative (Negative) Urine Bilirubin 2+ H (Negative) Urine Urobilinogen 4.0 (<2.0) mg/dL Ur Leukocyte Esterase Large H (Negative) Urine RBC 32 H (0-5) /hpf Urine WBC 58 H (0-5) /hpf Ur Squamous Epith Cells 4 (0-4) /hpf Urine Mucus Few H (None) /hpf Urine HCG, Qual (Not Detectd) 09/05/21 09/05/21 Range/Units 16:10 16:22 WBC (3.8-10.6) k/uL RBC (3.80-5.40) m/uL Hgb (11.4-16.0) gm/dL Hct (34.0-46.0) % MCV (80.0-100.0) fL MCH (25.0-35.0) pg MCHC (31.0-37.0) g/dL RDW (11.5-15.5) % Plt Count (150-450) k/uL MPV Neutrophils % % Lymphocytes % % Monocytes % % Eosinophils % % Basophils % % Neutrophils # (1.3-7.7) k/uL Lymphocytes # (1.0-4.8) k/uL Monocytes # (0-1.0) k/uL Eosinophils # (0-0.7) k/uL Basophils # (0-0.2) k/uL Sodium (137-145) mmol/L Potassium (3.5-5.1) mmol/L Chloride (98-107) mmol/L Carbon Dioxide (22-30) mmol/L Anion Gap mmol/L BUN (7-17) mg/dL Creatinine (0.52-1.04) mg/dL Est GFR (CKD-EPI)AfAm (>60 ml/min/1.73 sqM) Est GFR (CKD-EPI)NonAf (>60 ml/min/1.73 sqM) Glucose (74-99) mg/dL Plasma Lactic Acid Edenilson 0.9 (0.7-2.0) mmol/L Calcium (8.4-10.2) mg/dL Total Bilirubin (0.2-1.3) mg/dL AST (14-36) U/L ALT (4-34) U/L Alkaline Phosphatase (38-126) U/L Total Protein (6.3-8.2) g/dL Albumin (3.5-5.0) g/dL Amylase (30-110) U/L Lipase (23-300) U/L Urine Color Urine Appearance (Clear) Urine pH (5.0-8.0) Ur Specific [place] (1.001-1.035) Urine Protein (Negative) Urine Glucose (UA) (Negative) Urine Ketones (Negative) Urine Blood (Negative) Urine Nitrite (Negative) Urine Bilirubin (Negative) Urine Urobilinogen (<2.0) mg/dL Ur Leukocyte Esterase (Negative) Urine RBC (0-5) /hpf Urine WBC (0-5) /hpf Ur Squamous Epith Cells (0-4) /hpf Urine Mucus (None) /hpf Urine HCG, Qual Not Detected (Not Detectd) Disposition Clinical Impression: Transaminitis, Cholelithiasis, Choledocholithiasis Disposition: ADMITTED IP TO THIS HOSP
[2021-09-05 16:25] LABS: Basophils % (A) 0 %; Eosinophils # (A) 0.1 k/uL (0-0.7); Eosinophils % (A) 2 %; HCT 43.7 % (34.0-46.0); HGB 14.6 gm/dL (11.4-16.0); Lymphocytes # (A) 1.3 k/uL (1.0-4.8); Lymphocytes % (A) 19 %; MCH 31.1 pg (25.0-35.0); MCHC 33.5 g/dL (31.0-37.0); Mean Platelet Volume 7.3; Monocytes # (A) 0.3 k/uL (0-1.0); Monocytes % (A) 5 %; Neutrophils # (A) 4.9 k/uL (1.3-7.7); Neutrophils % (A) 72 %; Platelet Count 297 k/uL (150-450); RDW 11.7 % (11.5-15.5); WBC 6.8 k/uL (3.8-10.6)
[2021-09-05 16:32] LABS: Appearance,Urine Cloudy (Clear); Bilirubin,Urine 2+ (Negative); Blood,Urine Trace (Negative); Color,Urine Brown; Glucose,Urine (UA) Negative (Negative); Ketones,Urine Negative (Negative); Leukocyte Esterase,Urine Large (Negative); Mucus,Urine Few /hpf; Nitrite,Urine Negative (Negative); Protein,Urine 1+ (Negative); RBC,Urine 32 /hpf (0-5); Specific Gravity,Urine 1.036 (1.001-1.035); Squamous Epithelial Cell,Urine 4 /hpf (0-4); WBC,Urine 58 /hpf (0-5)
[2021-09-05 16:35] LABS: Albumin 4.1 g/dL (3.5-5.0); Amylase 52 U/L (30-110); Chloride 105 mmol/L (98-107); Glucose 91 mg/dL (74-99); Total Protein 7.1 g/dL (6.3-8.2)
[2021-09-05 16:36] LABS: African American GFR (CKD) >90 (>60 ml/min/1.73 sqM); Alkaline Phosphatase 252 U/L (38-126); Anion Gap 8 mmol/L; Blood Urea Nitrogen 13 mg/dL (7-17); Calcium 9.5 mg/dL (8.4-10.2); Carbon Dioxide 25 mmol/L (22-30); Lipase 146 U/L (23-300); Non-African American GFR(CKD) >90 (>60 ml/min/1.73 sqM); Sodium 138 mmol/L (137-145); Total Bilirubin 3.8 mg/dL (0.2-1.3)
[2021-09-05 16:43] LABS: ALT 804 U/L (4-34); AST 834 U/L (14-36)
[2021-09-05] MEDS ORDERED: PIPERACILLIN-TAZOBACTAM 3.375 GM in SODIUM CHLORIDE 0.9% 100 ML IVPB STA (16:57)
--- NOTE | 2021-09-05 16:58 | P.PN ---
Progress Note - Text Progress Note Date: 09/05/21 Patient contacted office for worsening abdominal pain. I called her and found that she is in the ER. Spoke to ER provider. Will admit with monitor of LFTs. US gallbladder pending
[2021-09-05] MEDS ORDERED: NALOXONE 0.4 MG/ML 1 ML VIAL IV PRN (17:11)
[2021-09-05] MEDS ORDERED: ONDANSETRON 4 MG/2 ML VIAL IVP PRN (17:11)
[2021-09-05] MEDS ORDERED: ACETAMINOPHEN TAB 325 MG TAB PO PRN (17:11)
[2021-09-05] MEDS ORDERED: HYDROmorphone 1 MG/ML 1 ML SYRINGE IVP PRN (17:11)
--- NOTE | 2021-09-05 17:23 | US ---
EXAMINATION TYPE: US gallbladder DATE OF EXAM: 09/05/2021 COMPARISON: NONE CLINICAL HISTORY: pain. RUQ Pain with nausea and vomiting EXAM MEASUREMENTS: Liver Length: 16.1 cm Gallbladder Wall: 0.2 cm CBD: 0.7 cm Right Kidney: 12.7 x 5.7 x 4.1 cm Pancreas: Included portions of the pancreas are within normal limit. Liver: Mild intrahepatic biliary ductal dilatation. Hepatic contour and echogenicity are within norm al limit. No liver mass seen. Hepatopedal flow is seen in the main portal vein. Gallbladder: Multiple mobile stones seen Evidence for sonographic Bautista's sign: No Right Kidney: wnl IMPRESSION: 1. CHOLELITHIASIS AND BORDERLINE DILATED EXTRAHEPATIC COMMON BILE DUCT MEASURING 6 TO 7 MM, PREVIOUSL Y THE EXTRA HEPATIC COMMON BILE DUCT MEASURED 2 TO 3 MM. FINDINGS SUGGESTING CHOLEDOCHOLITHIASIS. 2. MILD APPARENT DILATATION OF THE INTRAHEPATIC BILE DUCTS, CORRELATION WITH DIRECT AND INDIRECT BILI CHOE LEVELS RECOMMENDED.
[2021-09-05] MEDS: SODIUM CHLORIDE 0.9% 1,000 ML IV SCH (19:43)
[2021-09-06] MEDS: PIPERACILLIN-TAZOBACTAM 3.375 GM in SODIUM CHLORIDE 0.9% 100 ML IVPB SCH ×3 (00:45→16:32)
[2021-09-06] MEDS: SODIUM CHLORIDE 0.9% 1,000 ML IV SCH ×2 (03:44→15:06)
[2021-09-06 06:49] LABS: African American GFR (CKD) >90 (>60 ml/min/1.73 sqM); Anion Gap 9 mmol/L; Blood Urea Nitrogen 10 mg/dL (7-17); Calcium 9.3 mg/dL (8.4-10.2); Carbon Dioxide 21 mmol/L (22-30); Chloride 109 mmol/L (98-107); Glucose 67 mg/dL (74-99); Non-African American GFR(CKD) >90 (>60 ml/min/1.73 sqM); Potassium 4.7 mmol/L (3.5-5.1); Sodium 139 mmol/L (137-145)
[2021-09-06 06:56] LABS: Glucose,Whole Blood 66 mg/dL (75-99)
[2021-09-06] MEDS: PANTOPRAZOLE 40 MG/10 ML VIAL IV SCH (07:18)
[2021-09-06 07:31] LABS: Glucose,Whole Blood 93 mg/dL (75-99)
[2021-09-06 07:53] LABS: ALT 551 U/L (4-34); AST 403 U/L (14-36); Albumin 3.4 g/dL (3.5-5.0); Albumin/Globulin Ratio 1.3; Alkaline Phosphatase 265 U/L (38-126); Globulin 2.6 g/dL; Total Bilirubin 1.9 mg/dL (0.2-1.3)
--- NOTE | 2021-09-06 10:24 | P.GSHP ---
History of Present Illness H&P Date: 09/05/21 CHIEF COMPLAINT: Right upper quadrant abdominal pain 2 days HISTORY OF PRESENT ILLNESS: The patient is a 26 year old female who presented to the emergency room with worsening right upper quadrant abdominal pain. She just recently had her child via spontaneous vaginal delivery 3 weeks ago. For s everal months she's had some right upper quadrant abdominal pain. Today she reports new change in her urine of dark-color. She reports severe abdominal pain that occurred yesterday. She reports inability to tolerate food. She presented to emergency room for worsening symptoms and known history of gallstones. PAST MEDICAL HISTORY: See list and reviewed PAST SURGICAL HISTORY: See list and reviewed MEDICATIONS: See list and reviewed ALLERGIES: See list and reviewed SOCIAL HISTORY: See list and reviewed FAMILY HISTORY: See list and reviewed REVIEW OF ORGAN SYSTEMS: CONSTITUTIONAL: No fevers or chills. No recent weight loss. EYES: Denies any trouble with vision. No glasses. HEENT: No difficulties with hearing. No nosebleeds. No difficulty swallowing. RESPIRATORY: Denies pneumonia. Denies any troubles with breathing or dyspnea on exertion. CARDIOVASCULAR: Denies any chest pain, palpitations, or recent heart attacks. GASTROINTESTINAL: Has since medical stones. GENITOURINARY: Denies any blood in urine or increased urinary frequency. NEUROLOGICAL: Denies any numbness or tingling along the distal extremities. No seizure disorders or headaches. MUSCULOSKELETAL: Denies any back pain, stiffness or joint arthritis. SKIN: No current skin cancer. No rash. PSYCHIATRIC: Denies current depression or suicidal thoughts. ENDOCRINE: Denies current thyroid disorders. Denies any blood sugar glucose intolerance. HEME/LYMPHATIC: Denies any lumps and bumps around the neck. No recent deep venous thrombosis. ALLERGY/IMMUNOLOGY: No immunoglobulin therapy. No immune deficiencies. BREAST: Denies current breast lumps, pain or nipple discharge. PHYSICAL EXAM: VITALS: Reviewed CONSTITUTIONAL: Well developed and in no acute distress. EYES: Conjuctivae without sclera icterus. Extraocular movements grossly intact. HEAD, EARS, NOSE, THROAT: Moist buccal mucosa. Head is atraumatic, normocephalic. Hears conversational speech. No nasal drainage. NECK: Supple. No JV distention. No thyroidomegaly. RESPIRATORY: Non-labored respirations and equal bilateral excursions. No gross wheezes. CARDIOVASCULAR: Regular rate and rhythm. Extremities without moderate edema. Palpable 2+ radial pulses. ABDOMEN: Tender right upper quadrant. No peritonitis. LYMPH: No neck lymphadenopathy. MUSCULOSKELETAL: Nail and fingers with good capillary refill. SKIN: Warm and well perfused with good skin turgor. NEUROLOGIC: Cranial nerves II through XII grossly intact. Sensation upper and extremities intact. No focal or lateralizing signs. PSYCH: Appropriate affect. Alert and oriented to person, place and time. Displays appropriate insight. CLINCAL LABS: Reviewed. WBC normal at 6.8. Total bilirubin elevated 3.8. ALT and AST elevated over 800s IMAGING: Independently reviewed ultrasound of the abdomen demonstrates multiple gallstones. This is my independent interpretation. RADIOLOGY: Report reviewed ultrasound of the abdomen demonstrating increased size of common bile duct from 0.2-0.3 mm up to 0.7-0.8 for choledocholithiasis RECORDS: previous old records reviewed spontaneous vaginal delivery with hospitalization 08/14/2010 to 08/16/2021 ASSESSMENT: 1. Choledocholithiasis with transaminitis 2. Symptomatic gallstones PLAN: 1. Recommend full inpatient admission for choledocholithiasis due to symptomatic gallstones. 2. Will repeat comprehensive metabolic panel for trend of liver enzymes. 3. Recommend surgical intervention once liver enzymes improve 4. Risk of ERCP also described with possible transfer to outside facility ERCP unavailable due to lack of caser up provider Past Medical History Past Medical History: No Reported History Additional Past Medical History / Comment(s): gall bladder problems during pregancy History of Any Multi-Drug Resistant Organisms: None Reported Past Surgical History: No Surgical Hx Reported Additional Past Surgical History / Comment(s): wisdom teeth removal Past Anesthesia/Blood Transfusion Reactions: No Reported Reaction Past Psychological History: No Psychological Hx Reported Smoking Status: Never smoker Past Alcohol Use History: None Reported Past Drug Use History: None Reported - Past Family History Father Family Medical History: Coronary Artery Disease (CAD) Additional Family Medical History / Comment(s): [place] Medications and Allergies Home Medications Medication Instructions Recorded Confirmed Type Pnv No.95/Ferrous Fum/Folic AC 1 tab PO DAILY 04/30/21 09/05/21 History [ Multivitamin Tablet] Ibuprofen [Motrin] 600 mg PO Q6HR PRN #30 tab 08/16/21 09/05/21 Rx Acetaminophen [Tylenol] 500 mg PO Q4-6H PRN 09/05/21 09/05/21 History Calcium Carbonate [Tums] 500 mg PO QID PRN 09/05/21 09/05/21 History Mag Hydrox/Aluminum Hyd/Simeth 30 ml PO Q4H PRN 09/05/21 09/05/21 History [Mylanta Maximum Strength Liq] Allergies Allergy/AdvReac Type Severity Reaction Status Date / Time No Known Allergies Allergy Verified 09/05/21 16:21 Surgical - Exam Vital Signs Temp Pulse Resp BP Pulse Ox 97.8 F 88 18 140/85 95 09/05/21 15:29 09/05/21 15:29 09/05/21 15:29 09/05/21 15:29 09/05/21 15:29 Results - Labs 09/05/21 16:10 09/06/21 06:00 Abnormal Lab Results - Last 24 Hours (Table) 09/05/21 09/05/21 Range/Units 16:10 16:10 Total Bilirubin 3.8 H (0.2-1.3) mg/dL AST 834 H (14-36) U/L ALT 804 H (4-34) U/L Alkaline Phosphatase 252 H (38-126) U/L Urine Appearance Cloudy H (Clear) Ur Specific [place] 1.036 H (1.001-1.035) Urine Protein 1+ H (Negative) Urine Blood Trace H (Negative) Urine Bilirubin 2+ H (Negative) Ur Leukocyte Esterase Large H (Negative) Urine RBC 32 H (0-5) /hpf Urine WBC 58 H (0-5) /hpf Urine Mucus Few H (None) /hpf Diabetes panel 09/05/21 Range/Units 16:10 Sodium 138 (137-145) mmol/L Potassium 4.0 (3.5-5.1) mmol/L Chloride 105 (98-107) mmol/L Carbon Dioxide 25 (22-30) mmol/L BUN 13 (7-17) mg/dL Creatinine 0.58 (0.52-1.04) mg/dL Glucose 91 (74-99) mg/dL Calcium 9.5 (8.4-10.2) mg/dL AST 834 H (14-36) U/L ALT 804 H (4-34) U/L Alkaline Phosphatase 252 H (38-126) U/L Total Protein 7.1 (6.3-8.2) g/dL Albumin 4.1 (3.5-5.0) g/dL Calcium panel 09/05/21 Range/Units 16:10 Calcium 9.5 (8.4-10.2) mg/dL Albumin 4.1 (3.5-5.0) g/dL Pituitary panel 09/05/21 Range/Units 16:10 Sodium 138 (137-145) mmol/L Potassium 4.0 (3.5-5.1) mmol/L Chloride 105 (98-107) mmol/L Carbon Dioxide 25 (22-30) mmol/L BUN 13 (7-17) mg/dL Creatinine 0.58 (0.52-1.04) mg/dL Glucose 91 (74-99) mg/dL Calcium 9.5 (8.4-10.2) mg/dL Adrenal panel 09/05/21 Range/Units 16:10 Sodium 138 (137-145) mmol/L Potassium 4.0 (3.5-5.1) mmol/L Chloride 105 (98-107) mmol/L Carbon Dioxide 25 (22-30) mmol/L BUN 13 (7-17) mg/dL Creatinine 0.58 (0.52-1.04) mg/dL Glucose 91 (74-99) mg/dL Calcium 9.5 (8.4-10.2) mg/dL Total Bilirubin 3.8 H (0.2-1.3) mg/dL AST 834 H (14-36) U/L ALT 804 H (4-34) U/L Alkaline Phosphatase 252 H (38-126) U/L Total Protein 7.1 (6.3-8.2) g/dL Albumin 4.1 (3.5-5.0) g/dL Assessment and Plan (1) Choledocholithiasis Current Visit: Yes Status: Acute Code(s): K80.50 - CALCULUS OF BILE DUCT W/O CHOLANGITIS OR CHOLECYST W/O OBST SNOMED Code(s): 921337129 (2) Cholelithiasis Current Visit: Yes Status: Acute Code(s): K80.20 - CALCULUS OF GALLBLADDER W/O CHOLECYSTITIS W/O OBSTRUCTION SNOMED Code(s): 474873610 (3) Transaminitis Current Visit: Yes Status: Acute Code(s): R74.01 - ELEVATION OF LEVELS OF LIVER TRANSAMINASE LEVELS SNOMED Code(s): 593226318
[2021-09-06 12:42] LABS: Glucose,Whole Blood 71 mg/dL (75-99)
[2021-09-06] MEDS: HYDROmorphone 0.5 MG/0.5 ML SYRINGE IVP PRN ×2 (13:25→19:59)
[2021-09-06 15:41] LABS: ALT 482 U/L (4-34); AST 290 U/L (14-36); African American GFR (CKD) >90 (>60 ml/min/1.73 sqM); Albumin 3.8 g/dL (3.5-5.0); Albumin/Globulin Ratio 1.4; Alkaline Phosphatase 281 U/L (38-126); Anion Gap 8 mmol/L; Blood Urea Nitrogen 6 mg/dL (7-17); Calcium 9.5 mg/dL (8.4-10.2); Carbon Dioxide 21 mmol/L (22-30); Chloride 104 mmol/L (98-107); Globulin 2.7 g/dL; Glucose 116 mg/dL (74-99); Non-African American GFR(CKD) >90 (>60 ml/min/1.73 sqM); Potassium 3.9 mmol/L (3.5-5.1); Sodium 133 mmol/L (137-145); Total Bilirubin 1.6 mg/dL (0.2-1.3); Total Protein 6.5 g/dL (6.3-8.2)
--- NOTE | 2021-09-06 16:40 | P.PN ---
Subjective Progress Note Date: 09/06/21 CHIEF COMPLAINT: Right upper quadrant abdominal pain 2 days HISTORY OF PRESENT ILLNESS: The patient is a 26 year old female who presented right upper quadrant abdominal pain, ultrasound findings consistent with choledocholithiasis. Since admission, right upper quadrant pain has improved. REVIEW OF ORGAN SYSTEMS: No fevers or chills. No nausea or vomiting. No new chest pain. PHYSICAL EXAM: VITALS: Reviewed CONSTITUTIONAL: Well developed and in no acute distress. EYES: Conjuctivae without sclera icterus. Extraocular movements grossly intact. HEAD, EARS, NOSE, THROAT: Moist buccal mucosa. Head is atraumatic, normocephalic. Hears conversational speech. No nasal drainage. NECK: Supple. No JV distention. No thyroidomegaly. RESPIRATORY: Non-labored respirations and equal bilateral excursions. No gross wheezes. CARDIOVASCULAR: Regular rate and rhythm. Palpable 2+ radial pulses. ABDOMEN: Decreased right upper quadrant tenderness. MUSCULOSKELETAL: No clubbing cyanosis. SKIN: Warm and well perfused with good skin turgor. NEUROLOGIC: Cranial nerves II through XII grossly intact. No focal or lateralizing signs. PSYCH: Appropriate affect. Alert and oriented to person, place and time. Displays appropriate insight. CLINCAL LABS: Reviewed. WBC normal at 6.8. Total bilirubin elevated 3.8, now 1.9. ALT and AST elevated over 800s, now over 400. ASSESSMENT: 1. Choledocholithiasis with transaminitis 2. Symptomatic gallstones PLAN: 1. Continue clear liquid diet. 2. Reassess liver enzymes for passing of common bile duct stone. 3. Benefits and risks for bladder cholecystectomy reviewed. Objective - Vital Signs Vital signs: Vital Signs Temp 98.4 F 09/06/21 14:00 Pulse 98 09/06/21 14:00 Resp 18 09/06/21 14:00 BP 118/83 09/06/21 14:00 Pulse Ox 99 09/06/21 14:00 Intake & Output 09/05/21 09/06/21 09/06/21 18:59 06:59 18:59 Intake Total 388 Balance 388 Weight 81.647 kg Intake: Oral 388 Other: Voiding Method Toilet # Voids 3 - Labs CBC & Chem 7: 09/05/21 16:10 09/06/21 15:01 Labs: Abnormal Lab Results - Last 24 Hours (Table) 09/05/21 09/06/21 09/06/21 Range/Units 16:10 06:00 06:54 Sodium (137-145) mmol/L Chloride 109 H (98-107) mmol/L Carbon Dioxide 21 L (22-30) mmol/L BUN (7-17) mg/dL Glucose 67 L (74-99) mg/dL POC Glucose (mg/dL) 66 L (75-99) mg/dL Total Bilirubin 3.8 H 1.9 H (0.2-1.3) mg/dL AST 834 H 403 H (14-36) U/L ALT 804 H 551 H (4-34) U/L Alkaline Phosphatase 252 H 265 H (38-126) U/L Total Protein 6.0 L (6.3-8.2) g/dL Albumin 3.4 L (3.5-5.0) g/dL 09/06/21 09/06/21 Range/Units 12:40 15:01 Sodium 133 L (137-145) mmol/L Chloride (98-107) mmol/L Carbon Dioxide 21 L (22-30) mmol/L BUN 6 L (7-17) mg/dL Glucose 116 H (74-99) mg/dL POC Glucose (mg/dL) 71 L (75-99) mg/dL Total Bilirubin 1.6 H (0.2-1.3) mg/dL AST 290 H (14-36) U/L ALT 482 H (4-34) U/L Alkaline Phosphatase 281 H (38-126) U/L Total Protein (6.3-8.2) g/dL Albumin (3.5-5.0) g/dL Microbiology - Last 24 Hours (Table) 09/05/21 16:10 Urine Culture - Preliminary Urine,Voided Assessment and Plan (1) Choledocholithiasis Current Visit: Yes Status: Acute Code(s): K80.50 - CALCULUS OF BILE DUCT W/O CHOLANGITIS OR CHOLECYST W/O OBST SNOMED Code(s): 361478197 (2) Cholelithiasis Current Visit: Yes Status: Acute Code(s): K80.20 - CALCULUS OF GALLBLADDER W/O CHOLECYSTITIS W/O OBSTRUCTION SNOMED Code(s): 878558408 (3) Transaminitis Current Visit: Yes Status: Acute Code(s): R74.01 - ELEVATION OF LEVELS OF LIVER TRANSAMINASE LEVELS SNOMED Code(s): 323692520
[2021-09-07] MEDS: PIPERACILLIN-TAZOBACTAM 3.375 GM in SODIUM CHLORIDE 0.9% 100 ML IVPB SCH ×3 (00:14→17:21)
[2021-09-07] MEDS: SODIUM CHLORIDE 0.9% 1,000 ML IV SCH ×3 (00:24→22:42)
[2021-09-07] MEDS: HYDROmorphone 0.5 MG/0.5 ML SYRINGE IVP PRN (08:38)
[2021-09-07] MEDS: PANTOPRAZOLE 40 MG/10 ML VIAL IV SCH (08:38)
[2021-09-07] MEDS ORDERED: IV FLUID CONTINUATION 1,000 ML IV ONE (09:20)
[2021-09-07] MEDS ORDERED: ONDANSETRON 4 MG/2 ML VIAL IVP ONE (09:28)
[2021-09-07] MEDS ORDERED: MIDAZOLAM 2 MG/2 ML VIAL IVP ONE (09:28)
[2021-09-07] MEDS ORDERED: DEXAMETHASONE SOD PHOSPHATE 4 MG/ML 1 ML VIAL IVP ONE (09:28)
[2021-09-07] MEDS ORDERED: SCOPOLAMINE 1.5MG/72HR PATCH TRANSDERM ONE (09:28)
--- NOTE | 2021-09-07 09:55 | P.PN ---
Subjective Progress Note Date: 09/07/21 CHIEF COMPLAINT: Right upper quadrant abdominal pain 2 days HISTORY OF PRESENT ILLNESS: The patient is a 26 year old female with right upper quadrant abdominal pain from symptomatic gallstones and choledocholithiasis. Overnight, she had increasing right upper quadrant abdominal pain however not as severe as the time of admission. No reports of nausea and vomiting. REVIEW OF ORGAN SYSTEMS: T-max 100.3. No nausea or vomiting. No new chest pain. PHYSICAL EXAM: VITALS: Reviewed CONSTITUTIONAL: Well developed and in no acute distress. EYES: Conjuctivae without sclera icterus. Extraocular movements grossly intact. HEAD, EARS, NOSE, THROAT: Moist buccal mucosa. Head is atraumatic, normoceph alic. Hears conversational speech. No nasal drainage. NECK: Supple. No JV distention. No thyroidomegaly. RESPIRATORY: Non-labored respirations and equal bilateral excursions. No gross wheezes. CARDIOVASCULAR: Regular rate and rhythm. Palpable 2+ radial pulses. ABDOMEN: Mild right upper quadrant tenderness. No peritonitis. MUSCULOSKELETAL: No clubbing cyanosis. SKIN: Warm and well perfused with good skin turgor. NEUROLOGIC: Cranial nerves II through XII grossly intact. No focal or latera lizing signs. PSYCH: Appropriate affect. Alert and oriented to person, place and time. Displays appropriate insight. CLINCAL LABS: Reviewed. Total bilirubin elevated 3.8, now 1.9 to 1.6. ALT and AST elevated over 800s, now over 400 to 200s ASSESSMENT: 1. Choledocholithiasis with transaminitis 2. Symptomatic gallstones PLAN: 1. LFTs continue to trend downward suggesting passage of gallstones from common bile duct. Robotic cholecystectomy described for symptomatic gallstones. 2. Monitor LFTs. Objective - Vital Signs Vital signs: Vital Signs Temp 97.4 F L 09/07/21 09:15 Pulse 86 09/07/21 09:15 Resp 16 09/07/21 09:15 BP 119/72 09/07/21 09:15 Pulse Ox 97 09/07/21 09:15 Intake & Output 09/06/21 09/07/21 09/07/21 18:59 06:59 18:59 Intake Total 388 Balance 388 Intake: Oral 388 Other: Voiding Method Toilet Toilet Toilet # Voids 3 - Labs CBC & Chem 7: 09/05/21 16:10 09/06/21 15:01 Labs: Abnormal Lab Results - Last 24 Hours (Table) 09/06/21 09/06/21 Range/Units 12:40 15:01 Sodium 133 L (137-145) mmol/L Carbon Dioxide 21 L (22-30) mmol/L BUN 6 L (7-17) mg/dL Glucose 116 H (74-99) mg/dL POC Glucose (mg/dL) 71 L (75-99) mg/dL Total Bilirubin 1.6 H (0.2-1.3) mg/dL AST 290 H (14-36) U/L ALT 482 H (4-34) U/L Alkaline Phosphatase 281 H (38-126) U/L Microbiology - Last 24 Hours (Table) 09/05/21 16:10 Urine Culture - Final Urine,Voided Assessment and Plan (1) Choledocholithiasis Current Visit: Yes Status: Acute Code(s): K80.50 - CALCULUS OF BILE DUCT W/O CHOLANGITIS OR CHOLECYST W/O OBST SNOMED Code(s): 406733535 (2) Cholelithiasis Current Visit: Yes Status: Acute Code(s): K80.20 - CALCULUS OF GALLBLADDER W/O CHOLECYSTITIS W/O OBSTRUCTION SNOMED Code(s): 232105411 (3) Transaminitis Current Visit: Yes Status: Acute Code(s): R74.01 - ELEVATION OF LEVELS OF LIVER TRANSAMINASE LEVELS SNOMED Code(s): 508548147
[2021-09-07] MEDS ORDERED: LIDOCAINE 1% INJ 10MG/ML (20 ML MDV) ONE (10:13)
[2021-09-07] MEDS ORDERED: ROCURONIUM 10 MG/ML (5 ML VIAL) IV ONE (10:13)
[2021-09-07] MEDS ORDERED: GLYCOPYRROLATE 0.2 MG/ML 2 ML VIAL ONE (10:13)
[2021-09-07] MEDS ORDERED: LIDOCAINE 1%-EPI 1:100,000 20 ML VIAL SQ ONE (10:13)
[2021-09-07] MEDS ORDERED: MIDAZOLAM 2 MG/2 ML VIAL ONE (10:13)
[2021-09-07] MEDS ORDERED: HYDROmorphone (PF) 1 MG/ML ONE (10:13)
[2021-09-07] MEDS ORDERED: HEPARIN SODIUM,PORCINE 10,000 UNIT/ML 1 ML VIAL ONE (10:13)
[2021-09-07] MEDS ORDERED: KETOROLAC 15 MG/ML 1 ML VIAL ONE (10:13)
[2021-09-07] MEDS ORDERED: SUCCINYLCHOLINE CHLORIDE 100 MG/5 ML SYR IV ONE (10:13)
[2021-09-07] MEDS ORDERED: PROPOFOL 10 MG/ML 20 ML VIAL IV ONE (10:13)
[2021-09-07] MEDS ORDERED: NEOSTIGMINE 1 MG/ML 10 ML VIAL ONE (10:13)
[2021-09-07] MEDS ORDERED: INDOCYANINE GREEN 25 MG VIAL IV ONE (10:13)
[2021-09-07] MEDS ORDERED: fentaNYL (PF) 50 MCG/ML 2 ML AMP ONE (10:13)
[2021-09-07] MEDS ORDERED: LACTATED RINGERS 1,000 ML IV ONE ×2 (10:25→11:16)
[2021-09-07] MEDS ORDERED: INDOCYANINE GREEN 25 MG VIAL IV STA (10:44)
--- NOTE | 2021-09-07 11:55 | P.OP ---
Date of Procedure: 09/07/21 Description of Procedure: SURGEON: NAILA ARCEO MD PREOPERATIVE DIAGNOSES: 1. Symptomatic gallstones with choledocholithiasis 2. Right upper quadrant abdominal pain 3. Status post spontaneous vaginal delivery, 3 weeks ago 4. Hyperbilirubinemia and transaminitis POSTOPERATIVE DIAGNOSES: 1. Acute cholecystitis due to cystic duct obstruction 2. Right upper quadrant abdominal pain 3. Status post spontaneous vaginal delivery, 3 weeks ago 4. Hyperbilirubinemia and transaminitis 5. Symptomatic gallstones with choledocholithiasis OPERATION: Robotic-assisted da Will Xi laparoscopic cholecystectomy, multiport with FIREFLY ESTIMATED BLOOD LOSS: 5 mL. SPECIMENS REMOVED: Gallbladder. COMPLICATIONS: None. OPERATIVE FINDINGS: 1. Anterior spiraling of cystic duct with gallbladder infundibulum posterior 2. Mildly dilated common bile duct 3. Complete lack of contrast in gallbladder consistent with acute cholecystitis due to cystic duct obstruction INDICATIONS: The patient is a 26-year-old female who presents with symptomatic gallstones including hyperbilirubinemia and transaminitis consistent with clinical choledocholithiasis. During admission, LFTs including total bilirubin were trending downward. Robotic assisted laparoscopic approach was described. Benefits and risks of the procedure including but not limited to bleeding, infection, injury to the biliary tree was described. Possibility of retained gallstone and additional procedures for ERCP were reviewed. Informed consent was obtained. DESCRIPTION OF PROCEDURE: Patient was brought to the operating room, placed in supine position. After general induction, the abdomen had been prepped and draped in standard sterile fashion. The robotic da Will XI system was primed. After a timeout protocol was performed, the patient had been prepped and draped in standard sterile fashion. The patient was injected with indocyanine green. A 5 mm 0 degrees laparoscopic trocar entry was performed along the left upper quadrant. The abdomen insufflated to 15 mmHg pressure which was tolerated well. Diagnostic laparoscopy demonstrated no injury to bowel viscera or mesentery. The liver surface was unremarkable. Next, two 8 mm robotic ports were placed along the right upper abdomen. The camera 8-mm port was maintained along the epigastrium. Another 8 mm port was placed along the left upper abdominal wall after exchanging the 5 mm port. Please note that the ports were placed at least 10 to 15 cm away from the target anatomy of the gallbladder. The robot was docked along the left lateral abdomen. The patient was repositioned in reverse Trendelenburg position. Using a grasper for arm 3, a grasper for arm 4, including hook cautery for arm 1, the robotic system was docked and primed as described. Instruments were interchanged by the facility assistant including hook cautery, Bovie cautery and clip appliers. I had sat at the console. The gallbladder was distended with edema along the gallbladder wall. The cystic duct was found tortuous and anterior to the gallbladder infundibulum that was found posteriorly. Adhesions about the cystic structures were carefully dissected free without injury to the common bile duct. The common bile had mild dilation. Contrast ended at the cystic duct consistent with acute cholecystitis due to cystic duct obstruction. The infundibulum and cystic duct were dissected free from surrounding tissues. The cystic duct was isolated. FIREFLY was used to identify the cystic artery and cystic structures. A critical view of safety was obtained. Large PLASTIC clips were used throughout the entire case. Using a clip optometry professor, 2 clips were placed at the junction of the infundibulum and cystic duct. The cystic duct was divided between clips. Next, the cystic artery was similarly clipped and cauterized. Electro-Bovie cautery was used to remove the gallbladder from the hepatic fossa. Hemostasis was checked and found to be adequate. The robot was undocked. I re-scrubbed into the case. Using a 10 mm Endo Catch bag via the left upper quadrant incision, the specimen was removed from the abdominal cavity. All pneumoperitoneum instruments were evacuated from the abdominal cavity. The incisions were reapproximated using 4-0 Monocryl in an interrupted subcuticular fashion. Fascial defects were less than 8 mm in size. Please note along the trocar sites, local anesthetic was placed as a field block prior to insertion of all instruments. Liquid glue was applied to the skin. At the end of the procedure needle, sponge, and instrument count had been verified correct by the surgical specialist. The patient was transferred to postanesthesia care unit in stable condition. Intraoperative films were shared with the patient's family.
--- NOTE | 2021-09-07 11:55 | P.PN ---
Progress Note - Text Progress Note Date: 09/07/21 Patient's updated on surgical care over the telephone
[2021-09-07] MEDS ORDERED: SCOPOLAMINE 1.5MG/72HR PATCH TRANSDERM SCH (12:00)
[2021-09-07] MEDS: KETOROLAC 15 MG/ML 1 ML VIAL IVP SCH ×2 (12:56→17:21)
[2021-09-07] MEDS: ENOXAPARIN 30 MG/0.3 ML SYRINGE SQ SCH (12:57)
[2021-09-07 13:09] LABS: Basophils # (A) 0.04 X 10*3/uL (0.00-0.10); Basophils % (A) 0.5 %; Eosinophils # (A) 0.18 X 10*3/uL (0.04-0.35); Eosinophils % (A) 2.4 %; HCT 38.5 % (37.2-46.3); HGB 12.3 g/dL (12.0-15.0); Lymphocytes # (A) 1.59 X 10*3/uL (0.90-5.00); Lymphocytes % (A) 20.8 %; MCH 29.6 pg (27.0-32.0); MCHC 31.9 g/dL (32.0-37.0); MCV 92.8 fL (80.0-97.0); Mean Platelet Volume 10.6 fL (9.5-12.2); Monocytes # (A) 0.69 X 10*3/uL (0.20-1.00); Neutrophils # (A) 5.11 X 10*3/uL (1.80-7.70); Platelet Count 233 X 10*3/uL (140-440); RBC 4.15 X 10*6/uL (4.10-5.20); WBC 7.63 X 10*3/uL (4.50-10.00)
[2021-09-07 13:22] LABS: African American GFR (CKD) 141.1 (60.0-200.0); Albumin 3.5 g/dL (3.8-4.9); Albumin/Globulin Ratio 1.74 (1.60-3.17); Anion Gap 12.5 mmol/L (4.00-12.00); BUN/Creat Ratio 7.3 Ratio (12.00-20.00); Blood Urea Nitrogen 4.8 mg/dL (9.0-27.0); Calcium 8.9 mg/dL (8.7-10.3); Carbon Dioxide 22.3 mmol/L (21.6-31.8); Non-African American GFR(CKD) 121.7 (60.0-200.0); Potassium 4.2 mmol/L (3.5-5.5); Total Bilirubin 0.9 mg/dL (0.30-1.20); Total Protein 5.6 g/dL (6.2-8.2)
[2021-09-07] MEDS: SIMETHICONE 40 MG/0.6 ML DROPS 2,000 MG/30 ML BOTTLE PO SCH ×3 (14:58→22:43)
[2021-09-07 15:19] LABS: ALT 321 U/L (4-34); AST 165 U/L (14-36); African American GFR (CKD) >90 (>60 ml/min/1.73 sqM); Albumin 3.3 g/dL (3.5-5.0); Albumin/Globulin Ratio 1.2; Alkaline Phosphatase 253 U/L (38-126); Anion Gap 8 mmol/L; Blood Urea Nitrogen 6 mg/dL (7-17); Calcium 8.7 mg/dL (8.4-10.2); Carbon Dioxide 21 mmol/L (22-30); Chloride 107 mmol/L (98-107); Globulin 2.8 g/dL; Glucose 149 mg/dL (74-99); Non-African American GFR(CKD) >90 (>60 ml/min/1.73 sqM); Potassium 4.1 mmol/L (3.5-5.1); Sodium 136 mmol/L (137-145); Total Bilirubin 1.1 mg/dL (0.2-1.3); Total Protein 6.1 g/dL (6.3-8.2)
[2021-09-08] MEDS: KETOROLAC 15 MG/ML 1 ML VIAL IVP SCH ×3 (00:17→11:55)
[2021-09-08] MEDS: PIPERACILLIN-TAZOBACTAM 3.375 GM in SODIUM CHLORIDE 0.9% 100 ML IVPB SCH ×2 (00:18→07:56)
[2021-09-08] MEDS: HYDROmorphone 0.5 MG/0.5 ML SYRINGE IVP PRN (00:24)
[2021-09-08] MEDS: SODIUM CHLORIDE 0.9% 1,000 ML IV SCH (04:57)
[2021-09-08 06:25] LABS: ALT 426 U/L (4-34); AST 396 U/L (14-36); African American GFR (CKD) >90 (>60 ml/min/1.73 sqM); Albumin 2.9 g/dL (3.5-5.0); Albumin/Globulin Ratio 1.2; Alkaline Phosphatase 312 U/L (38-126); Anion Gap 3 mmol/L; Blood Urea Nitrogen 5 mg/dL (7-17); Calcium 8.8 mg/dL (8.4-10.2); Carbon Dioxide 26 mmol/L (22-30); Chloride 109 mmol/L (98-107); Globulin 2.5 g/dL; Glucose 92 mg/dL (74-99); Non-African American GFR(CKD) >90 (>60 ml/min/1.73 sqM); Potassium 3.9 mmol/L (3.5-5.1); Sodium 138 mmol/L (137-145); Total Bilirubin 2.6 mg/dL (0.2-1.3); Total Protein 5.4 g/dL (6.3-8.2)
[2021-09-08 06:39] LABS: Basophils % (A) 0 %; Eosinophils # (A) 0.1 k/uL (0-0.7); Eosinophils % (A) 2 %; HCT 36.5 % (34.0-46.0); HGB 12.5 gm/dL (11.4-16.0); Lymphocytes # (A) 1.8 k/uL (1.0-4.8); Lymphocytes % (A) 34 %; MCH 31.2 pg (25.0-35.0); MCHC 34.4 g/dL (31.0-37.0); MCV 90.9 fL (80.0-100.0); Mean Platelet Volume 7.6; Monocytes # (A) 0.3 k/uL (0-1.0); Monocytes % (A) 5 %; Neutrophils # (A) 2.9 k/uL (1.3-7.7); Neutrophils % (A) 55 %; Platelet Count 212 k/uL (150-450); RBC 4.01 m/uL (3.80-5.40); RDW 12.4 % (11.5-15.5); WBC 5.3 k/uL (3.8-10.6)
[2021-09-08 07:06] VITALS: BP 135/85; PULSE 71; RESP 18; TEMP 98.4
[2021-09-08] MEDS: SIMETHICONE 40 MG/0.6 ML DROPS 2,000 MG/30 ML BOTTLE PO SCH (07:56)
[2021-09-08] MEDS: PANTOPRAZOLE 40 MG/10 ML VIAL IV SCH (07:56)
[2021-09-08] MEDS: ENOXAPARIN 30 MG/0.3 ML SYRINGE SQ SCH (07:56)
--- NOTE | 2021-09-08 11:26 | MR ---
EXAMINATION TYPE: MR MRCP DATE OF EXAM: 09/08/2021 COMPARISON: Ultrasound 09/05/2021 HISTORY: Common bile duct stones, Hx of Gallbladder removal 09-07-21, Increased liver enzymes Standard multiplanar, multisequence MRI departmental protocol Multiplanar, multisequence images of MRCP were acquired without contrast. Delayed FINDINGS: Exam is limited by motion artifact. Grossly there appears to be small amount of fluid surrounding the liver and gallbladder fossa. Postcholecystectomy suggested. Small amount of fluid in the subcutaneous tissues and tiny bilateral pleural effusion suspected. Kidn eys symmetric in size. Adrenal glands are normal morphology. Visualized pancreas normal. Intrahepatic ducts appear to be of normal caliber. Extrahepatic duct demonstrates smooth tapered narr owing near the ampulla. Motion artifact limits assessment of the ampullary region. The duct measures approximately 6 to 7 mm the upper limits of normal or slightly increased. IMPRESSION: Limited exam due to motion artifact and image degradation. 1. The CBD measures 6-7 mm at the upper limits of normal or slightly dilated. No definite filling def ects are seen. There is smooth tapering of the distal CBD. Correlate with ERCP as clinically warrante d. 2. There also is a small amount of fluid surrounding the liver and the gallbladder fossa possibly rel ated to postcholecystectomy. Correlate clinically.
--- NOTE | 2021-09-08 12:31 | P.PN ---
Subjective Progress Note Date: 09/08/21 CHIEF COMPLAINT: Right upper quadrant abdominal pain 2 days HISTORY OF PRESENT ILLNESS: The patient is a 26 year old female with right upper quadrant abdominal pain from symptomatic gallstones and choledocholithiasis. She is status post cholecystectomy. Yesterday, total bilirubin slightly elevated. This morning total bilirubin moderately elevated. Patient reports dark-colored urine similar to her initial admission. Mother is at bedside. Pain is tolerable. REVIEW OF ORGAN SYSTEMS: T-max 98.7. No nausea or vomiting. No new chest pain. PHYSICAL EXAM: VITALS: Reviewed CONSTITUTIONAL: Well developed and in no acute distress. EYES: Conjuctivae with icterus. Extraocular movements grossly intact. HEAD, EARS, NOSE, THROAT: Moist buccal mucosa. Head is atraumatic, normocephalic. Hears conversational speech. No nasal drainage. NECK: Supple. No JV distention. No thyroidomegaly. RESPIRATORY: Non-labored respirations and equal bilateral excursions. No gross wheezes. CARDIOVASCULAR: Regular rate and rhythm. Palpable 2+ radial pulses. ABDOMEN: Incisions clean dry and intact MUSCULOSKELETAL: No clubbing cyanosis. SKIN: Warm and well perfused with good skin turgor. Jaundice NEUROLOGIC: Cranial nerves II through XII grossly intact. No focal or lateralizing signs. PSYCH: Appropriate affect. Alert and oriented to person, place and time. Displays appropriate insight. : Urine dark orange CLINCAL LABS: Reviewed. Total bilirubin elevated 3.8 on admission up from 0.9 to 2.6. ALT and AST elevated over 800s on admission down to 200s now elevated over 300s. STUDIES: MRCP report reviewed with dilated common bile duct of 6 to 7 mm. ASSESSMENT: 1. Choledocholithiasis with transaminitis 2. Symptomatic gallstones PLAN: 1. Clinical exam including diagnostic studies consistent with dilated common bile duct suggestive of retained common bile duct stones. 2. Recommend transfer to a facility for ERCP as fit model unavailable at institution. 3. Clinical course and findings discussed with patient and mother at bedside. Objective - Vital Signs Vital signs: Vital Signs Temp 98.4 F 09/08/21 07:05 Pulse 71 09/08/21 07:05 Resp 18 09/08/21 07:05 BP 135/85 09/08/21 07:05 Pulse Ox 97 09/08/21 07:05 Intake & Output 09/07/21 09/08/21 09/08/21 18:59 06:59 18:59 Intake Total 1922 Output Total 5 Balance 1917 Intake: IV 1700 Oral 222 Output: Estimated Blood Loss 5 Other: Voiding Method Toilet Toilet # Voids 3 1 - Labs CBC & Chem 7: 09/08/21 06:00 09/08/21 06:00 Labs: Abnormal Lab Results - Last 24 Hours (Table) 09/07/21 09/07/21 09/07/21 Range/Units 07:07 07:07 14:52 MCHC 31.9 L (32.0-37.0) g/dL Sodium 136 L (137-145) mmol/L Chloride (98-107) mmol/L Carbon Dioxide 21 L (22-30) mmol/L Anion Gap 12.50 H (4.00-12.00) mmol/L BUN 4.8 L 6 L (9.0-27.0) mg/dL Creatinine 0.44 L (0.52-1.04) mg/dL BUN/Creatinine Ratio 7.30 L (12.00-20.00) Ratio Glucose 149 H (74-99) mg/dL Total Bilirubin (0.2-1.3) mg/dL AST 136 H 165 H (13-35) U/L ALT 352 H 321 H (8-44) U/L Alkaline Phosphatase 295 H 253 H (41-126) U/L Total Protein 5.6 L 6.1 L (6.2-8.2) g/dL Albumin 3.5 L 3.3 L (3.8-4.9) g/dL 09/08/21 Range/Units 06:00 MCHC (32.0-37.0) g/dL Sodium (137-145) mmol/L Chloride 109 H (98-107) mmol/L Carbon Dioxide (22-30) mmol/L Anion Gap (4.00-12.00) mmol/L BUN 5 L (9.0-27.0) mg/dL Creatinine (0.52-1.04) mg/dL BUN/Creatinine Ratio (12.00-20.00) Ratio Glucose (74-99) mg/dL Total Bilirubin 2.6 H (0.2-1.3) mg/dL AST 396 H (13-35) U/L ALT 426 H (8-44) U/L Alkaline Phosphatase 312 H (41-126) U/L Total Protein 5.4 L (6.2-8.2) g/dL Albumin 2.9 L (3.8-4.9) g/dL Assessment and Plan (1) Choledocholithiasis Current Visit: Yes Status: Acute Code(s): K80.50 - CALCULUS OF BILE DUCT W/O CHOLANGITIS OR CHOLECYST W/O OBST SNOMED Code(s): 300955485 (2) Cholelithiasis Current Visit: Yes Status: Acute Code(s): K80.20 - CALCULUS OF GALLBLADDER W/O CHOLECYSTITIS W/O OBSTRUCTION SNOMED Code(s): 661835599 (3) Transaminitis Current Visit: Yes Status: Acute Code(s): R74.01 - ELEVATION OF LEVELS OF LIVER TRANSAMINASE LEVELS SNOMED Code(s): 779003857
--- NOTE | 2021-09-08 12:40 | P.DS ---
Providers Date of admission: 09/06/21 10:24 Expected date of discharge: 09/08/21 Attending physician: Carla Perez Primary care physician: Clayton Fernando - Discharge Diagnosis(es) (1) Choledocholithiasis Current Visit: Yes Status: Acute (2) Cholelithiasis Current Visit: Yes Status: Acute (3) Transaminitis Current Visit: Yes Status: Acute Hospital Course: POSTOPERATIVE DIAGNOSES: 1. Acute cholecystitis due to cystic duct obstruction 2. Right upper quadrant abdominal pain 3. Status post spontaneous vaginal delivery, 3 weeks ago 4. Hyperbilirubinemia and transaminitis 5. Symptomatic gallstones with choledocholithiasis COURSE: The patient is a 26 year old female initially admitted with right upper quadrant abdominal pain including symptomatic gallstones. Liver enzymes including total bilirubin were elevated. Ultrasound was suggestive of gallstones including possible common bile duct obstruction. Patient's labs improved since admission. She underwent cholecystectomy yesterday uneventfully. Repeat LFTs demonstrated now an increase upward trend. Patient also reported dark-colored urine which was initially present on admission. Family is at bedside. MRCP completed demonstrating dilated common bile duct. With clinical picture and diagnostic studies, ERCP advised. Transfer to facility for ERCP reviewed. REVIEW OF ORGAN SYSTEMS: T-max 98.7. No nausea or vomiting. No new chest pain. PHYSICAL EXAM: VITALS: Reviewed CONSTITUTIONAL: Well developed and in no acute distress. EYES: Conjuctivae with icterus. Extraocular movements grossly intact. HEAD, EARS, NOSE, THROAT: Moist buccal mucosa. Head is atraumatic, normocephalic. Hears conversational speech. No nasal drainage. NECK: Supple. No JV distention. No thyroidomegaly. RESPIRATORY: Non-labored respirations and equal bilateral excursions. No gross wheezes. CARDIOVASCULAR: Regular rate and rhythm. Palpable 2+ radial pulses. ABDOMEN: Incisions clean dry and intact MUSCULOSKELETAL: No clubbing cyanosis. SKIN: Warm and well perfused with good skin turgor. Jaundice NEUROLOGIC: Cranial nerves II through XII grossly intact. No focal or lateralizing signs. PSYCH: Appropriate affect. Alert and oriented to person, place and time. Displays appropriate insight. : Urine dark orange Procedures: OPERATION: Robotic-assisted da Will Xi laparoscopic cholecystectomy, multiport with FIREFLY ESTIMATED BLOOD LOSS: 5 mL. SPECIMENS REMOVED: Gallbladder. COMPLICATIONS: None. OPERATIVE FINDINGS: 1. Anterior spiraling of cystic duct with gallbladder infundibulum posterior 2. Mildly dilated common bile duct 3. Complete lack of contrast in gallbladder consistent with acute cholecystitis due to cystic duct obstruction Patient Condition at Discharge: Stable Plan - Discharge Summary Discharge Rx Participant: No New Discharge Prescriptions: Continue Pnv No.95/Ferrous Fum/Folic AC [ Multivitamin Tablet] 1 tab PO DAILY Mag Hydrox/Aluminum Hyd/Simeth [Mylanta Maximum Strength Liq] 30 ml PO Q4H PRN PRN Reason: Gi Upset Ibuprofen [Motrin] 600 mg PO Q6HR PRN #30 tab PRN Reason: Mild Pain Or Fever >= 100.5 Calcium Carbonate [Tums] 500 mg PO QID PRN PRN Reason: Gi Upset Discontinued Acetaminophen [Tylenol] 500 mg PO Q4-6H PRN PRN Reason: Pain Or Fever > 100.5 Discharge Medication List Pnv No.95/Ferrous Fum/Folic AC [ Multivitamin Tablet] 1 tab PO DAILY 04/30/21 [History] Ibuprofen [Motrin] 600 mg PO Q6HR PRN #30 tab 08/16/21 [Rx] Calcium Carbonate [Tums] 500 mg PO QID PRN 09/05/21 [History] Mag Hydrox/Aluminum Hyd/Simeth [Mylanta Maximum Strength Liq] 30 ml PO Q4H PRN 09/05/21 [History] Follow up Appointment(s)/Referral(s): Clayton Fernando MD [Primary Care Provider] - 1-2 days Carla Perez MD [STAFF PHYSICIAN] - 09/26/21 Patient Instructions/Handouts: MRCP (Magnetic Resonance Cholangiopancreatography) (DC) Discharge Disposition: DC/[facility] INTERMEDIATE CARE FAC
== END 2021-09-08 13:13 | disposition short-term general hospital (02) | DRG 419 ==
LOC: EC 15:22 → 6NMEDSUR 17:23 → OBSVTOIN 09-06 10:24
PROVIDERS: ADMIT Surgery Plastic and Reconstructive Surgery; ATTEND Surgery Plastic and Reconstructive Surgery
PROC: 8E0W4CZ Robotic Assisted Procedure of Trunk Region, Percutaneous Endoscopic Approach (ICD-10-PCS; principal; 2021-09-07 10:20)
PROC: BF50200 Other Imaging of Bile Ducts using Fluorescing Agent, Indocyanine Green Dye, Intraoperative (ICD-10-PCS; principal; 2021-09-07 10:20)
PROC: 0FT44ZZ Resection of Gallbladder, Percutaneous Endoscopic Approach (ICD-10-PCS; principal; 2021-09-07 10:20)
DX: K80.63 Calculus of gallbladder and bile duct with acute cholecystitis with obstruction (principal); R74.01 Elevation of levels of liver transaminase levels; Z20.822 Contact with and (suspected) exposure to COVID-19; Z79.899 Other long term (current) drug therapy; Z98.818 Other dental procedure status; Z82.49 Family history of ischemic heart disease and other diseases of the circulatory system
CPT/HCPCS: 36415; 74181; 76705; 80053; 81001; 81025; 82150; 83605; 83690; 85025; 87086; 87635; 88304; 96374; 96375; 99284

== ENCOUNTER → 2021-09-13 | Outpatient (CLI) | payer OTHER ==
[2021-09-13 18:40] LABS: African American GFR (CKD) 145.8 (60.0-200.0); Albumin/Globulin Ratio 1.69 (1.60-3.17); Anion Gap 12.1 mmol/L (4.00-12.00); Blood Urea Nitrogen 4.8 mg/dL (9.0-27.0); Calcium 9.4 mg/dL (8.7-10.3); Carbon Dioxide 23.4 mmol/L (21.6-31.8); Globulin 2.4 g/dL (1.6-3.3); Non-African American GFR(CKD) 125.8 (60.0-200.0); Potassium 4.1 mmol/L (3.5-5.5); Total Bilirubin 0.5 mg/dL (0.30-1.20); Total Protein 6.3 g/dL (6.2-8.2)
== END | disposition home or self-care (01) ==
LOC: LABWHC1 09:00
PROVIDERS: ATTEND Physician Assistant
DX: R74.01 Elevation of levels of liver transaminase levels (principal)
CPT/HCPCS: 36415; 80053

== ENCOUNTER → 2021-09-26 | Outpatient (CLI) | payer OTHER ==
[2021-09-26 20:51] LABS: African American GFR (CKD) 144.6 (60.0-200.0); Albumin 4.5 g/dL (3.8-4.9); Albumin/Globulin Ratio 1.99 (1.60-3.17); Anion Gap 13.5 mmol/L (4.00-12.00); BUN/Creat Ratio 11.56 Ratio (12.00-20.00); Blood Urea Nitrogen 7.1 mg/dL (9.0-27.0); Calcium 9.8 mg/dL (8.7-10.3); Carbon Dioxide 24.6 mmol/L (21.6-31.8); Globulin 2.3 g/dL (1.6-3.3); Non-African American GFR(CKD) 124.8 (60.0-200.0); Potassium 4.1 mmol/L (3.5-5.5); Total Bilirubin 0.6 mg/dL (0.30-1.20); Total Protein 6.8 g/dL (6.2-8.2)
== END | disposition home or self-care (01) ==
LOC: LABWHC1 12:28
PROVIDERS: ATTEND Surgery Plastic and Reconstructive Surgery
DX: K80.45 Calculus of bile duct with chronic cholecystitis with obstruction (principal)
CPT/HCPCS: 36415; 80053

== ENCOUNTER → 2022-07-16 | Outpatient (CLI) | payer OTHER ==
--- NOTE | 2022-07-16 16:00 | US ---
EXAMINATION TYPE: Transabdominal DATE OF EXAM: 07/16/2022 3:51 PM COMPARISON: NONE CLINICAL HISTORY: Z36.89 CONFIRM GESTATIONAL AGE AND VIABILITY. Confirm dates EXAM PERFORMED: Transabdominal (TA) EXAM MEASUREMENTS: GESTATIONAL AGE / DATING Physician Established: (13 weeks/6 days) EDC: 01/15/2023 Dates by LMP: (13 weeks/6 days) EDC: 01/15/2023 Dates by First Scan: No previous this is first scan Dates by Current Scan for: (13 weeks/6 days) EDC: 01/15/2023 MATERNAL ANATOMY Uterus: 14.9 x 7.1 x 10.0cm Right Ovary: 2.6 x 1.3 x 1.7cm Left Ovary: 2.3 x 1.4 x 1.2cm Post CDS / Adnexa: wnl Presence of free fluid: no Presence of corpus luteal cyst: not seen Presence of subchorionic bleed: no GESTATION / SURVEY CRL: 7.7cm (13 weeks/6 days) Yolk Sac (normal less than 6mm): not seen Heart Rate: 158 bpm Rhythm: Normal IUP: Viable IUP Date of LMP: 04/10/2022 IMPRESSION: Single live intrauterine with ultrasound age of 13 weeks 6 days by crown-rump length. This is concordant with physician established dates.
== END | disposition home or self-care (01) ==
LOC: RADUSWWP 15:20
PROVIDERS: ATTEND Obstetrics & Gynecology
DX: Z36.89 Encounter for other specified antenatal screening (principal); Z3A.13 13 weeks gestation of pregnancy
CPT/HCPCS: 76801

== ENCOUNTER → 2022-08-21 | Outpatient (CLI) | payer OTHER ==
--- NOTE | 2022-08-21 22:11 | US ---
EXAMINATION TYPE: US OB anatomy transabd DATE OF EXAM: 08/21/2022 COMPARISON: NONE HISTORY: O36.62X excessive growth LGA TECHNIQUE: Transabdominal (TA) EXAM MEASUREMENTS: GESTATIONAL AGE / DATING Physician Established: (19 weeks/0 days) EDC: 01/15/23 Dates by LMP: ( weeks/19 days) 0 days EDC: 01/15/23 Dates by First Scan: (19 weeks/0 days) EDC: 01/15/23 Dates by Current Scan for: (19 weeks/4 days) EDC: 01/11/23 SURVEY IUP: Single PLACENTA: Posterior PREVIA: No previa MALIK: 13.2 cm Normal CERVICAL LENGTH (transabdominal: norm > 3.0cm): 5.1 cm BIOMETRY PRESENTATION: Variable LIE: Transverse lie with head maternal LT BPD: 4.5 cm 19 weeks / 5 days HC: 17.0 cm 19 weeks / 5 days AC: 14.2 cm 19 weeks / 4 days FL: 3.0 cm 19 weeks / 2 days ESTIMATED WEIGHT IN GRAMS: 293 grams ESTIMATED WEIGHT IN LBS/OZ: 0 lbs. 10 oz. WEIGHT PERCENTAGE BASED ON ESTABLISHED DATE: 72 % HC/AC: 1.20 Normal FL/AC: 21% HEART RATE: 138 bpm RHYTHM: Normal ANATOMY SEEN (within normal limits): * Lateral Vent (< 1 cm) 0.6 cm * Cisterna Magna (< 1.1 cm) 0.3 cm * Nuchal Fold (< 0.6 cm) 0.3 cm * Cerebellum (varies with age) 1.6 cm Choroid Plexus (bilateral) Midline Falx Cavus Septi Pellucidi Four Chamber Heart Outflow tracts: LVOT/RVOT Stomach Situs Nose / Lips Diaphragm Kidneys (bilateral) Bladder Cord Insert Three Vessel Cord Longitudinal Spine Transverse Spine Arms (bilateral) Legs (bilateral) IMPRESSION: Single live intrauterine gestation with ultrasound age 19 weeks 4 days. Additional information as felicity cribed above.
== END | disposition home or self-care (01) ==
LOC: RADUSWWP 15:46
PROVIDERS: ATTEND Obstetrics & Gynecology
DX: O36.62X1 Maternal care for excessive fetal growth, second trimester, fetus 1 (principal); Z3A.19 19 weeks gestation of pregnancy
CPT/HCPCS: 76811

== ENCOUNTER → 2022-09-27 | Outpatient (CLI) | payer OTHER ==
[2022-09-27 14:20] LABS: HCT 37.9 % (37.2-46.3); HGB 12.3 g/dL (12.0-15.0); MCH 30.4 pg (27.0-32.0); MCHC 32.5 g/dL (32.0-37.0); MCV 93.6 fL (80.0-97.0); Mean Platelet Volume 10.1 fL (9.5-12.2); NRBC Per 100 WBC 0 /100 WBCS (0.0-0.0); Platelet Count 289 X 10*3/uL (140-440); RBC 4.05 X 10*6/uL (4.10-5.20); RDW 13.2 % (11.5-14.5); WBC 6.78 X 10*3/uL (4.50-10.00)
== END | disposition home or self-care (01) ==
LOC: LABWHC1 07:10
PROVIDERS: ATTEND Obstetrics & Gynecology
DX: Z34.82 Encounter for supervision of other normal pregnancy, second trimester (principal)
CPT/HCPCS: 36415; 82950; 85027

== ENCOUNTER → 2022-12-13 | Outpatient (CLI) | payer OTHER ==
--- NOTE | 2022-12-13 15:02 | US ---
EXAMINATION TYPE: US OB >= 14 wk fetus DATE OF EXAM: 12/13/2022 COMPARISON: 08/21/22, 07/16/2022 CLINICAL HISTORY: 27-year-old female O36.6X0 large for dates TECHNIQUE: Transabdominal (TA) GESTATIONAL AGE / DATING Physician Established: (35 weeks/2 days) EDC: 01/15/2023 Dates by LMP: (35 weeks/3 days) EDC: 01/15/2023 Dates by First Scan: (35 weeks/2 days) EDC: 01/15/2023 Dates by Current Scan: (35 weeks/6 days) EDC: 01/11/2023 FINDINGS: SURVEY IUP: Single PLACENTA: Posterior PREVIA: No Previa MALIK: 15.9 cm Normal CERVICAL LENGTH (transabdominal: norm > 3.0cm): 3.8 cm, limited view BIOMETRY PRESENTATION: Vertex LIE: Longitudinal BPD: 9.23 cm 37 weeks / 3 days HC: 32.6 cm 36 weeks / 6 days AC: 32.1 cm 36 weeks / 0 days FL: 6.9 cm 35 weeks / 2 days ESTIMATED WEIGHT IN GRAMS: 2844 grams ESTIMATED WEIGHT IN LBS/OZ: 6 lbs. 4 oz. WEIGHT PERCENTAGE BASED ON ESTABLISHED DATES: 71% HC/AC: 1.01 Normal FL/AC: 21.4 Normal HEART RATE: 149 bpm RHYTHM: Normal IMPRESSION: 1. Single live intrauterine with estimated gestational age of 35 weeks 2 days by LMP. Curre nt ultrasound biometry is concordant at 35 weeks 6 days. There has been appropriate interval growth s won 08/21/2022. EFW% at 71. 2. Cephalic presentation. Posterior placenta.
== END | disposition home or self-care (01) ==
LOC: RADUSWWP 10:15
PROVIDERS: ATTEND Obstetrics & Gynecology
DX: O36.63X0 Maternal care for excessive fetal growth, third trimester, not applicable or unspecified (principal); Z3A.35 35 weeks gestation of pregnancy
CPT/HCPCS: 76805

== ENCOUNTER → 2023-07-24 | Outpatient (CLI) | payer OTHER ==
--- NOTE | 2023-07-25 10:09 | NM ---
EXAMINATION TYPE: NM thyroid image w uptake DATE OF EXAM: 07/25/2023 COMPARISON: NONE CLINICAL INDICATION: Female, 28 years old with history of R94.6 Abn thyroid labs R22.1 Neck mass; TECHNIQUE: Thyroid iodine uptake is calculated and images performed after the oral administration of 308 uCi 1-123 Capsule. FINDINGS: There is normal distribution of activity throughout the gland. The 4 hour iodine uptake is calculated at 30% (normal range 8-14%). The 24-hour iodine uptake is calculated at 54% (normal range 15-35%). IMPRESSION: 1. Findings compatible with hyperthyroidism. No definite hot or cold defects. Correlate with ultrasou nd if concern for thyroid nodules
== END | disposition home or self-care (01) ==
LOC: RADNMMAIN 08:23
PROVIDERS: ATTEND Family Medicine
DX: R94.6 Abnormal results of thyroid function studies (principal); R22.1 Localized swelling, mass and lump, neck
CPT/HCPCS: 78014; A9516

== ENCOUNTER → 2024-05-18 | Outpatient (CLI) | payer OTHER ==
--- NOTE | 2024-05-18 12:31 | US ---
EXAMINATION TYPE: Transabdominal DATE OF EXAM: 05/18/2024 10:01 AM COMPARISON: NONE CLINICAL INDICATION: Female, 28 years old with history of Z36.89 ENCOUNTER FOR OTHER SPECIFIED ANTENA PEREZ SCR; . Hx 1 miscarriage, hx ovarian cyst. EXAM PERFORMED: Transabdominal (TA) EXAM MEASUREMENTS: GESTATIONAL AGE / DATING Physician Established: Not yet established. Dates by LMP: (9 weeks/1 day) EDC: 12/20/2024 Dates by First Scan: This is first scan Dates by Current Scan for: (9 weeks/1 day) EDC: 12/20/2024 MATERNAL ANATOMY Uterus: 12.5 x 7.8 x 5.6 cm. Right Ovary: 3.1 x 1.6 x 2.2 cm. Left Ovary: 3.2 x 2.0 x 1.5 cm. Post CDS / Adnexa: Free fluid seen in right adnexa. Presence of free fluid: Yes, free fluid seen in right adnexa. Presence of corpus luteal cyst: Not seen Presence of subchorionic bleed: No GESTATION / SURVEY CRL: 2.37 cm (9 weeks/1 day) Yolk Sac (normal less than 6mm): 3.5 mm Heart Rate: 170 bpm Rhythm: Normal IUP: Viable IUP Date of LMP: 03/15/2024 Beta HcG (if available): Not available IMPRESSION: Single live intrauterine gestation ascites 9 weeks 1 day by crown-rump length.
== END | disposition home or self-care (01) ==
LOC: RADUSWWP 09:32
PROVIDERS: ATTEND Obstetrics & Gynecology
DX: Z36.89 Encounter for other specified antenatal screening (principal); Z3A.09 9 weeks gestation of pregnancy
CPT/HCPCS: 76801

== ENCOUNTER → 2024-08-05 | Outpatient (CLI) | payer OTHER ==
--- NOTE | 2024-08-05 13:22 | US ---
EXAMINATION TYPE: US OB >= 14 wk fetus DATE OF EXAM: 08/05/2024 COMPARISON: 05/18/2024 CLINICAL INDICATION: Female, 29 years old with history of O36.62X0 MATERNAL CARE FOR EXCESS GREGG WTH; Anatomy TECHNIQUE: Transabdominal (TA) GESTATIONAL AGE / DATING Physician Established: (20 weeks/3 days) EDC: 12/20/2024 Beta HCG (if available): Not available at this time SURVEY IUP: Single PLACENTA: Anterior PREVIA: No Previa MALIK: 17 cm Normal CERVICAL LENGTH (transabdominal: norm > 3.0cm): 3.4 cm CERVICAL LENGTH (transvaginal: norm> 2.5cm): NA cm (Supplemental transvaginal imaging performed to verify cervical length.) BIOMETRY PRESENTATION: Breech LIE: Longitudinal BPD: 4.64 cm 20 weeks / 1 days HC: 17.56 cm 20 weeks / 1 days AC: 14.82 cm 20 weeks / 1 days FL: 3.04 cm 19 weeks / 3 days ESTIMATED WEIGHT IN GRAMS: 314 grams ESTIMATED WEIGHT IN LBS/OZ: 0 lbs. 11 oz. WEIGHT PERCENTAGE BASED ON ESTABLISHED DATES: 16% HC/AC: 1.18 Normal FL/AC: 21% Normal HEART RATE: 150 bpm RHYTHM: Normal MATERNAL WALL MEASUREMENT: NA cm from skin to anterior uterine wall (if exam limited due to body habi tus). ANATOMY SEEN (within normal limits): * Lateral Vent (< 1 cm) cm * Cisterna Magna (< 1.1 cm) 0.26 cm * Nuchal Fold (< 0.6 cm) 0.2 cm * Cerebellum (varies with age) 2.10 cm Choroid Plexus (bilateral) Midline Falx Cavus Septi Pellucidi Four Chamber Heart Outflow tracts: LVOT/RVOT Stomach Situs Nose / Lips Diaphragm Kidneys (bilateral) Bladder Cord Insert Three Vessel Cord Longitudinal Spine Transverse Spine Arms (bilateral) Legs (bilateral) ANATOMY SEEN (does not appear within normal limits): ? Hydronephrosis otherwise normal kidneys ANATOMY NOT SEEN: all anatomy seen on this exam IMPRESSION: There may be mild hydronephrosis bilaterally. Follow-up at a dedicated pediatric imaging center for c onfirmation of findings is recommended. Additional information as described above. [facility], , 08/05/2024 1:20 PM
== END | disposition home or self-care (01) ==
LOC: RADUSWWP 12:15
PROVIDERS: ATTEND Obstetrics & Gynecology
DX: O36.62X0 Maternal care for excessive fetal growth, second trimester, not applicable or unspecified
CPT/HCPCS: 76811

== ENCOUNTER → 2024-08-05 | Outpatient (CLI) | payer OTHER ==
[2024-08-05 15:33] LABS: T4, Free (Free Thyroxine) 1.09 ng/dL (0.80-1.80)
== END | disposition home or self-care (01) ==
LOC: LABWHC1 13:02
PROVIDERS: ATTEND Internal Medicine
DX: E03.9 Hypothyroidism, unspecified (principal)
CPT/HCPCS: 36415; 84439; 84443